=== PATIENT | female | born 1980 | race African-American/Black ===

== ENCOUNTER 2019-10-05 09:26 | Outpatient (CLI) | payer BC, SELFPAY ==
--- NOTE | ~2019-10-05 | MM_ITS ---
EXAMINATION: MM screening [facility] [place] HISTORY: Screening mammogram TECHNIQUE: Craniocaudal and mediolateral oblique 3-D tomosynthesis images were obtained and synthetic 2-D images were generated. CAD analysis was submitted and interpreted. COMPARISON: No prior mammogram is available for comparison at this institution. BREAST PARENCHYMAL COMPOSITION: There are scattered areas of fibroglandular density. FINDINGS: There is no evidence of suspicious mass, calcification, or architectural distortion to sugg est malignancy in either breast. There has been no suspicious interval change. IMPRESSION: 1. No mammographic evidence of malignancy. 2. Recommend routine screening mammography in one year. BI-RADS Category 1: Negative Reviewed, dictated and finalized at location A.
== END 2019-10-05 09:27 | disposition home or self-care (01) ==
LOC: ANHIMG 09:30
PROVIDERS: PCP Family Medicine; Visit Provider Nurse Practitioner
DX: Z12.31 Encounter for screening mammogram for malignant neoplasm of breast (principal)
CPT/HCPCS: 77063; 77067

== ENCOUNTER → 2020-05-08 10:50 | Outpatient (CLI) | payer BC, SELFPAY ==
--- NOTE | ~2020-05-08 | US_ITS ---
EXAMINATION: US OB transvaginal DATE: 05/08/2020 11:23 INDICATION: History of spontaneous TECHNIQUE: Real-time transvaginal obstetric ultrasound. FINDINGS: No prior studies for comparison. The uterus measures 10.2 x 5.9 x 6.3 cm. There is an intrauterine gestational sac which is too small to assess for estimated gestational age. No pole or yolk sac identified. Right ovary is unremar kable measuring 2.9 x 2.7 x 2.2 cm. Left ovary not visualized. No free fluid in the pelvis. IMPRESSION: 1. Intrauterine gestational sac without pole or yolk sac, consistent with early gestation. Larry mmend follow-up with serial quantitative beta-hCG levels and ultrasound as clinically indicated. Reviewed, dictated and finalized at location B. IMPRESSION: 1. Intrauterine gestational sac without pole or yolk sac, consistent with early gestation. Recommend follow-up with serial quantitative beta-hCG levels and ultrasound as clinically indicated.
== END ==
PROVIDERS: PCP Family Medicine; Visit Provider Obstetrics & Gynecology Gynecology
DX: O26.21 Pregnancy care for patient with recurrent pregnancy loss, first trimester (principal); Z3A.00 Weeks of gestation of pregnancy not specified
CPT/HCPCS: 76817

== ENCOUNTER → 2020-05-13 10:37 | Outpatient (CLI) | payer BC, SELFPAY ==
--- NOTE | ~2020-05-13 | US_ITS ---
EXAMINATION: US OB transvaginal DATE: 05/13/2020 10:58 INDICATION: Labs not appropriate for gestational age. TECHNIQUE: Real-time transvaginal pelvic ultrasound was performed. COMPARISON: None. FINDINGS: The uterus measures 12.0 x 6.4 x 6.8 cm. There is a cyst with mean diameter of 9 mm in the endometria l complex that may be a gestational sac. No yolk sac or pole is identified. The right ovary maria d sures 3.1 x 2.4 x 2.3 cm. The left ovary measures 2.7 x 1.5 x 2.3 cm. There is no free fluid in the p jocelyne. IMPRESSION: 1. 9 mm cyst in the endometrial complex that is indeterminate for a gestational sac, increased from 7 mm on 05/08/20. Spontaneous and ectopic are not excluded. Serial beta-hCGs are r ecommended. Reviewed, dictated and finalized at location A. IMPRESSION: 1. 9 mm cyst in the endometrial complex that is indeterminate for a gestationa l sac, increased from 7 mm on 05/08/20. Spontaneous and ectopic pregna ncy are not excluded. Serial beta-hCGs are recommended.
== END ==
PROVIDERS: Visit Provider Nurse Practitioner
DX: O02.81 Inappropriate change in quantitative human chorionic gonadotropin (hCG) in early pregnancy (principal); Z3A.00 Weeks of gestation of pregnancy not specified
CPT/HCPCS: 76817

== ENCOUNTER 2020-10-10 08:18 | Outpatient (CLI) | payer BC, SELFPAY ==
--- NOTE | ~2020-10-10 | MM_ITS ---
EXAMINATION: MM screening [facility] [place] HISTORY: Screening mammogram TECHNIQUE: Craniocaudal and mediolateral oblique 3-D tomosynthesis images were obtained and synthetic 2-D images were generated. CAD analysis was submitted and interpreted. COMPARISON: 10/05/2019 BREAST PARENCHYMAL COMPOSITION: There are scattered areas of fibroglandular density. FINDINGS: Intramammary lymph node is noted in the upper outer quadrant of the right breast. There is no evidence of suspicious mass, calcification, or architectural distortion to suggest malignancy in e ither breast. There has been no suspicious interval change. IMPRESSION: 1. No mammographic evidence of malignancy. 2. Recommend routine screening mammography in one year. BI-RADS Category 2: Benign finding(s). Reviewed, dictated and finalized at location A.
== END 2020-10-10 08:19 | disposition home or self-care (01) ==
LOC: ANHIMG 08:20
PROVIDERS: PCP Family Medicine; Visit Provider Nurse Practitioner
DX: Z12.31 Encounter for screening mammogram for malignant neoplasm of breast (principal)
CPT/HCPCS: 77063; 77067

== ENCOUNTER → 2020-11-01 11:12 | Outpatient (CLI) | payer BC, SELFPAY ==
--- NOTE | ~2020-11-01 | US_ITS ---
US OB transvaginal DATE: 11/01/2020 11:48 INDICATION: Evaluate viability TECHNIQUE: Real-time imaging via transvaginal approach COMPARISON: 05/13/2020 obstetrical transvaginal examination FINDINGS: The uterus measures 10.2 cm height, 6.5 cm AP and 6.3 cm transverse dimension. There is sonia dence of a probable intrauterine gestational sac, with no pole or yolk sac evident. Mean sac di ameter is out of range. 2 cm right ovarian cyst. Left ovary is not visualized. No free pelvic fluid collection is detected. IMPRESSION: Possible early intrauterine gestational sac, without identifiable pole or yolk sac Consider follow-up obstetrical ultrasound imaging 2 cm right ovarian cyst Reviewed, dictated and finalized at Location A. Reviewed, dictated and finalized at location A. IMPRESSION: Possible early intrauterine gestational sac, without identifiable f etal pole or yolk sac Consider follow-up obstetrical ultrasound imaging 2 cm right ovarian cyst
== END ==
PROVIDERS: Visit Provider Obstetrics & Gynecology Gynecology
DX: O36.80X0 Pregnancy with inconclusive fetal viability, not applicable or unspecified (principal); Z3A.00 Weeks of gestation of pregnancy not specified; N83.201 Unspecified ovarian cyst, right side
CPT/HCPCS: 76817

== ENCOUNTER → 2020-11-14 10:06 | Outpatient (CLI) | payer BC, SELFPAY ==
--- NOTE | ~2020-11-14 | US_ITS ---
US OB transvaginal 11/14/2020 10:35 Indication: Evaluate viability. No pole identified on prior study. Procedure: High-resolution Limited early obstetrical ultrasound using transvaginal technique Comparison: Ultrasound dated 11/01/2020 Findings: Uterus measures 10.7 x 6.1 x 7.3 cm. No gestational sac or pole identified on the cur rent study. Endometrium is thickened and somewhat heterogeneous measuring 1.5 cm. There is a 2.8 cm corpus luteal cyst of the right ovary. The ovaries not visualized. No free fluid in the pelvis. Impression: 1: No identifiable gestational sac or pole identified. Thickened heterogeneous endometrium letty uring 1.5 cm. Findings compatible with failed . Recommend follow-up with serial quantitative beta-hCG levels and ultrasound as clinically warranted. Reviewed, dictated and finalized at location B. Impression: 1: No identifiable gestational sac or pole identified. Thickened heteroge neous endometrium measuring 1.5 cm. Findings compatible with failed . Recommend follow-up with serial quantitative beta-hCG levels and ultrasound as clinically warranted.
== END ==
PROVIDERS: Visit Provider Obstetrics & Gynecology Gynecology
DX: O36.80X0 Pregnancy with inconclusive fetal viability, not applicable or unspecified (principal); Z3A.00 Weeks of gestation of pregnancy not specified
CPT/HCPCS: 76817

== ENCOUNTER 2020-11-30 00:24 | Emergency (ER) | payer BC, SELFPAY ==
[2020-11-30] VITALS (7 sets, daily range): BP systolic 114–156; BP diastolic 64–109; PULSE 87–114; RESP 18–20; TEMP 36.2–37.2; O2SAT 98–100
[2020-11-30] MEDS: SODIUM CHLORIDE 0.9% IV 1,000 ML 999 ML IV CONT (01:14)
--- NOTE | 2020-11-30 01:15 | PC.NURSE ---
Pt presents to ED with complaints of vaginal bleeding due to an active miscarriage. Pt states initial onset was 11/23/20 that began with cramping. Pt states today bleeding has onset and there is large amount of blood and clots passing. Pt states she was approx 9 weeks . Denies nvd, fever, chills, chest pain and sob. Pain rated 5/10 at this time. pt self administered 800mg ibuprofen approx one hour ago. Pt with hx of hypertension and states she missed her dose of labetolol of which she takes twice daily. Pt alert and oriented x4. Breathing even and unlabored. Call button and personal items within reach. Spouse at bedside. Advised to press call button for assistance.
[2020-11-30 01:25] LABS: Add Urine Microscopic? YES; Appearance Urine Turbid (Clear); Bilirubin Urine Negative (Negative); Blood Urine 3+ (Negative); Budding Yeast Urine Present /hpf; Color Urine Red (Yellow); Glucose Urine UA 1+ mg/dL (Negative); Ketones Urine Negative (Negative); Leukocyte Esterase Ur Negative LEU/UL (Negative); Nitrate Urine Negative (Negative); Protein Urine 3+ mg/dL (Negative); RBC Urine >75 /hpf (0-2); Specific Grav Ur 1.015 (1.001-1.035); Urobilinogen Urine Negative mg/dL (<2.0)
[2020-11-30 01:31] LABS: Basophils Absolute Auto 0.1 K/mm3 (0.0-0.1); Basophils Percent Auto 0.4 % (0.2-1.2); Eosinophils Absolute Auto 0.2 K/mm3 (0-0.3); Eosinophils Percent Auto 1.3 % (0-4.4); Hematocrit 37.4 % (37.0-47.0); Hemoglobin 11.7 g/dL (12.0-15.0); Immature Granulocyte Absolute 0.04 K/mm3 (0.00-0.031); Immature Granulocyte Percent A 0.3 % (0-0.5); Lymphocytes Percent Auto 12.8 % (18.3-44.2); Mean Corpuscular HGB Conc 31.3 g/dl (32-36); Mean Corpuscular Hemoglobin 27.5 pg (26-34); Mean Platelet Volume 10.5 fl (7.4-10.4); Monocytes Absolute Auto 0.7 K/mm3 (0.1-0.6); Monocytes Percent Auto 4.9 % (2.6-8.5); Neutrophils Absolute Auto 10.7 K/mm3 (1.3-6.7); Neutrophils Percent Auto 80.3 % (45.5-73.1); Platelet Count Result 275 k/mm3 (150-375); Red Blood Count 4.25 M/mm3 (4.2-5.4); Red Cell Distribution Width 15.1 % (11.5-14.5); White Blood Count 13.3 K/mm3 (4.5-10.0)
[2020-11-30 01:34] LABS: Alanine Aminotransferase 17 U/L (4-35); Albumin Level 4.2 g/dL (3.5-5.1); Alkaline Phosphatase 64 U/L (38-126); Anion Gap 6 mmol/L (8-16); Aspartate Amino Transferase 26 U/L (14-36); Bilirubin,Total 0.4 mg/dL (0.2-1.3); Blood Urea Nitrogen 8 mg/dL (7-17); Calcium 9.1 mg/dL (8.4-10.2); Carbon Dioxide 28 mmol/L (22-30); Chloride 101 mmol/L (98-107); Estimated Glomerular Filt Rate > 60; Glucose 113 mg/dL (65-105); Potassium 3.9 mmol/L (3.4-5.0); Sodium 135 mmol/L (137-145)
--- NOTE | 2020-11-30 02:11 | PC.NURSE ---
Pt on cart sleeping. Spouse remains at bedside. Vitals are stable and pt in no obvious distress. Call button and personal items were within reach. Advised to press call button for assistance.
--- NOTE | 2020-11-30 02:23 | PC.NURSE ---
Pt and updated on labs. IV fluids continue to infuse due to positional IV site. Pt remains alert and oriented x4 and in no obvious distress at this time. Advised to press call button for assistance.
--- NOTE | 2020-11-30 02:37 | ED.GENADULT ---
HPI - General Adult General Chief complaint: Vaginal Bleeding Stated complaint: Vaginal bleeding, recent miscarry Time Seen by Provider: 11/30/20 01:09 History of Present Illness HPI narrative: Patient 40-year-old female presents the emergency department with chief complaint of vaginal bleeding. The patient reports that she is currently being followed by her PRODUCT CONSULTANT for a miscarriage. The patient states that she was last seen on Tuesday for a blood draw for a quantitative hCG. Patient reports she is Rh+ and reports that she is started having bleeding and cramping. The patient states the cramping has gotten moderate to severe and reports that now she is going through about a pad every 2 hours. The patient states she has passed some clots. The patient denies syncope denies lightheadedness denies chest pain or shortness of breath. Related Data Allergies Allergy/AdvReac Type Severity Reaction Status Date / Time No Known Allergies Allergy Verified 11/30/20 00:30 Review of Systems Review of Systems: Narrative: A 10 system review of systems was completed on the patient and is negative except for what is stated in the HPI. Nursing and ancillary documentation was reviewed. Exam Narrative: Exam Narrative: GENERAL: Well-appearing, well-nourished, and in no acute distress. HEAD: Normocephalic, atraumatic. EYES: PERRLA and EOMI. ENT: Nares clear, no rhinorrhea or epistaxis. Mucous membranes moist. NECK: Supple. CHEST: Clear to auscultation. No respiratory distress. HEART: Regular rate and rhythm. No murmur heard. Normal peripheral pulses. ABDOMEN: Soft, nontender, nondistended, normal active bowel sounds. : EXTREMITIES: Normal range of motion. No edema. SKIN: Warm, dry, no rash. NEURO: No focal deficits. Alert and oriented x3. PSYCH: Normal mood and affect. Course Vital Signs Vital signs: Vital Signs Temperature 36.2 C L 11/30/20 00:27 Pulse Rate 96 11/30/20 00:27 Respiratory Rate 20 11/30/20 00:27 Blood Pressure 152/109 H 11/30/20 00:27 Pulse Oximetry 100 11/30/20 00:27 Temperature 36.2 C L 11/30/20 00:27 Pulse Rate 95 11/30/20 01:19 Respiratory Rate 18 11/30/20 01:19 Blood Pressure 149/104 H 11/30/20 01:19 Pulse Oximetry 100 11/30/20 01:19 Medical Decision Making Vital Signs Vital Signs: Vital Signs Temperature 36.2 C L 11/30/20 00:27 Pulse Rate 96 11/30/20 00:27 Respiratory Rate 20 11/30/20 00:27 Blood Pressure 152/109 H 11/30/20 00:27 Pulse Oximetry 100 11/30/20 00:27 Temperature 36.2 C L 11/30/20 00:27 Pulse Rate 95 11/30/20 01:19 Respiratory Rate 18 11/30/20 01:19 Blood Pressure 149/104 H 11/30/20 01:19 Pulse Oximetry 100 11/30/20 01:19 Lab Data Result diagrams: 11/30/20 01:13 11/30/20 01:13 Labs: Lab Results 11/30/20 11/30/20 11/30/20 Range/Units 01:07 01:13 01:13 WBC 13.3 H (4.5-10.0) K/mm3 RBC 4.25 (4.2-5.4) M/mm3 Hgb 11.7 L (12.0-15.0) g/dL Hct 37.4 (37.0-47.0) % MCV 88.0 (80-100) fl MCH 27.5 (26-34) pg MCHC 31.3 L (32-36) g/dl RDW 15.1 H (11.5-14.5) % Plt Count 275 (150-375) k/mm3 MPV 10.5 H (7.4-10.4) fl Immature Gran % (Auto) 0.3 (0-0.5) % Neut % (Auto) 80.3 H (45.5-73.1) % Lymph % (Auto) 12.8 L (18.3-44.2) % [place] % (Auto) 4.9 (2.6-8.5) % Eos % (Auto) 1.3 (0-4.4) % Baso % (Auto) 0.4 (0.2-1.2) % Lymph # (Auto) 1.70 (0.9-3.2) K/mm3 [place] # (Auto) 0.7 H (0.1-0.6) K/mm3 Eos # (Auto) 0.2 (0-0.3) K/mm3 Baso # (Auto) 0.1 (0.0-0.1) K/mm3 Abs Immat Gran (auto) 0.04 H (0.00-0.031) K/mm3 Absolute Neuts (auto) 10.7 H (1.3-6.7) K/mm3 Absolute Nucleated RBC 0.0 (0.0-0.012) K/mm3 Nucleated RBC % 0.0 (0.0-0.2) % Sodium 135 L (137-145) mmol/L Potassium 3.9 (3.4-5.0) mmol/L Chloride 101 (98-107) mmol/L Carbon Dioxide 28 (22-30) mmol/L Anion Gap 6 L (8-16) mmol/L
--- NOTE | 2020-11-30 02:45 | PC.NURSE ---
Pt ambulated in amato to restroom and is now back in room resting on cart. Pt aware of poc and upcoming pelvic exam and has no questions and concerns at this time. remains at bedside.
--- NOTE | 2020-11-30 03:11 | PC.NURSE ---
EDMD presented to bedside for pelvic exam. Pt states abdominal cramping has improved.
--- NOTE | 2020-11-30 03:22 | PC.NURSE ---
Pt tolerated pelvic exam. Resting on cart in its lowest position with call button and personal items within reach. Advised to press call button for assistance.
== END 2020-11-30 04:10 | disposition home or self-care (01) ==
PROVIDERS: Emergency Provider Emergency Medicine; PCP Family Medicine
DX: O03.4 Incomplete spontaneous abortion without complication (principal)
CPT/HCPCS: 36415; 80053; 81001; 81025; 84702; 85025; 96360; 96361; 99283; J7030

== ENCOUNTER 2021-05-25 10:35 | Outpatient (CLI) | payer BC, SELFPAY ==
--- NOTE | 2021-05-25 10:46 | ECG_ITS ---
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
== END 2021-05-25 10:36 | disposition home or self-care (01) ==
LOC: ANHLAB 10:37
PROVIDERS: PCP Family Medicine; Visit Provider Nurse Practitioner Adult Health
DX: E66.01 Morbid (severe) obesity due to excess calories (principal); I10 Essential (primary) hypertension; R94.31 Abnormal electrocardiogram [ECG] [EKG]
CPT/HCPCS: 93005

== ENCOUNTER 2022-02-03 09:07 | Outpatient (CLI) | payer BC, SELFPAY ==
--- NOTE | ~2022-02-03 | MM_ITS ---
EXAMINATION: MM screening [facility] [place] HISTORY: Screening TECHNIQUE: Craniocaudal and mediolateral oblique 3-D tomosynthesis images were obtained and synthetic 2-D images were generated. CAD analysis was submitted and interpreted. COMPARISON: Comparison to multiple prior studies sequentially, with oldest reviewed study dated 10/04. BREAST PARENCHYMAL COMPOSITION: There are scattered areas of fibroglandular density. FINDINGS: There is no evidence of suspicious mass, calcification, or architectural distortion to sugg est malignancy in either breast. There has been no suspicious interval change. IMPRESSION: 1. No mammographic evidence of malignancy. 2. Recommend routine screening mammography in one year. BI-RADS Category 1: Negative Reviewed, dictated and finalized at location L.
== END 2022-02-03 09:08 | disposition home or self-care (01) ==
LOC: ANHIMG 09:12
PROVIDERS: PCP Nurse Practitioner Family; Visit Provider Nurse Practitioner
DX: Z12.31 Encounter for screening mammogram for malignant neoplasm of breast (principal)
CPT/HCPCS: 77063; 77067

== ENCOUNTER 2023-07-28 16:13 | Outpatient (CLI) | payer BC, SELFPAY ==
--- NOTE | ~2023-07-28 | MM_ITS ---
EXAMINATION: MM screening [facility] [place] HISTORY: Screening mammogram TECHNIQUE: Craniocaudal and mediolateral oblique 3-D tomosynthesis images were obtained and synthetic 2-D images were generated. CAD analysis was submitted and interpreted. COMPARISON: 02/03/2022, 10/10/2020, 10/05/2019 BREAST PARENCHYMAL COMPOSITION: There are scattered areas of fibroglandular density. FINDINGS: RIGHT BREAST: There is possible architectural distortion in the middle third of the central breast. LEFT BREAST: No suspicious mass, calcification, or architectural distortion are identified to suggest malignancy. There has been no suspicious interval change. IMPRESSION: 1. Possible right breast architectural distortion. 2. Additional mammographic views and possible breast ultrasound are recommended. BI-RADS Category 0: Incomplete: Needs additional imaging evaluation. Reviewed, dictated and finalized at location A. MS EXAMINER IMPRESSION: 1. Possible right breast architectural distortion. 2. Additional mammographic views and possible breast ultrasound are recommended . BI-RADS Category 0: Incomplete: Needs additional imaging evaluation.
== END 2023-07-28 16:14 | disposition home or self-care (01) ==
PROVIDERS: PCP Nurse Practitioner Family; Visit Provider Nurse Practitioner
DX: Z12.31 Encounter for screening mammogram for malignant neoplasm of breast (principal); R92.8 Other abnormal and inconclusive findings on diagnostic imaging of breast
CPT/HCPCS: 77063; 77067

== ENCOUNTER 2023-08-29 12:21 | Outpatient (CLI) | payer BC, SELFPAY ==
--- NOTE | ~2023-08-29 | MMUS_ITS ---
EXAMINATION: MM diagnostic [facility] [place], US breast RT limited HISTORY: Possible right breast architectural distortion on screening mammogram TECHNIQUE: Additional 3-D tomosynthesis images of the right breast were performed and synthetic 2-D i mages were generated. CAD analysis was submitted and interpreted. High resolution limited right breas t ultrasound was performed. COMPARISON: 07/28/2023, 02/03/2022, 10/10/2020, 10/05/2019 FINDINGS: MAMMOGRAPHIC FINDINGS: There is a persistent area of architectural distortion in the middle/posterior third of the breast at the 12:00 location approximately 9 cm from the nipple. ULTRASOUND: There is no evidence of focal abnormal solid or cystic mass in the vicinity of the mammographic findi ngs question. IMPRESSION: 1. Right breast architectural distortion without sonographic correlate. 2. Tomosynthesis guided biopsy is recommended. BI-RADS category 4, suspicious findings. Reviewed, dictated and finalized at location A. 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 Right breast architectural distortion without sonographic correlate. 2. Tomosynthesis guided biopsy is recommended. BI-RADS category 4, suspicious findings.
== END 2023-08-29 12:22 | disposition home or self-care (01) ==
LOC: ANHIMG 12:23
PROVIDERS: PCP Family Medicine; Visit Provider Obstetrics & Gynecology Gynecology
DX: R92.8 Other abnormal and inconclusive findings on diagnostic imaging of breast (principal)
CPT/HCPCS: 76642; 77061; 77065; G0279

== ENCOUNTER 2024-04-13 07:14 | Outpatient (CLI) | payer BC, SELFPAY ==
--- NOTE | ~2024-04-13 | XR_ITS ---
XR knee RT 3V 04/13/2024 07:53 Indication: Bilateral knee pain Procedure: 3 views right knee Comparison: No prior studies for comparison. Findings: There is moderate tricompartment osteoarthritis. No fracture or traumatic malalignment. No significant joint effusion. No foreign bodies. Impression: 1: Moderate tricompartment osteoarthritis of the right knee. Reviewed, dictated and finalized at location B. Impression: 1: Moderate tricompartment osteoarthritis of the right knee.
--- NOTE | ~2024-04-13 | XR_ITS ---
XR knee LT 3V 04/13/2024 07:53 Indication: Left knee pain Procedure: 3 views left knee Comparison: No prior studies for comparison. Findings: There is moderate osteoarthritis of the left knee. No fracture, subluxation or dislocation. No significant joint effusion. No foreign bodies. Impression: 1: Moderate osteoarthritis of the left knee. Reviewed, dictated and finalized at location B. Impression: 1: Moderate osteoarthritis of the left knee.
== END 2024-04-13 07:15 | disposition home or self-care (01) ==
PROVIDERS: PCP Nurse Practitioner Family; Visit Provider Nurse Practitioner Family
DX: M17.0 Bilateral primary osteoarthritis of knee (principal)
CPT/HCPCS: 73562

== ENCOUNTER 2024-11-02 10:22 | Outpatient (CLI) | payer BC, SELFPAY ==
--- NOTE | ~2024-11-02 | MM_ITS ---
EXAMINATION: MM screening [place] BI w [place] HISTORY: Screening TECHNIQUE: Craniocaudal and mediolateral oblique 3-D tomosynthesis images were obtained and synthetic 2-D images were generated. CAD analysis was submitted and interpreted. COMPARISON: Comparison to multiple prior studies sequentially, with oldest reviewed study dated 10/04. BREAST PARENCHYMAL COMPOSITION: Not dense: There are scattered areas of fibroglandular density. FINDINGS: There is no evidence of suspicious mass, calcification, or architectural distortion to sugg est malignancy in either breast. There has been no suspicious interval change. IMPRESSION: 1. No mammographic evidence of malignancy. 2. Recommend routine screening mammography in one year. BI-RADS Category 1: Negative Reviewed, dictated and finalized at location B.
--- OUTSIDE RECORDS SUMMARY | 2024-11-02 10:32 | XMS_ITS | Data Portability ---
Author Organization MD - [facility], Main Office Address [address] [place] [address] Assessment No assessment recorded. Plan of Treatment Reminders Order Date Submit Date Provider Last Modified By Organization Details Last Modified Time Details Appointments None recorded. Lab None recorded. Referral None recorded. Procedures None recorded. Surgeries None recorded. Imaging XR, knee, 3 view 2023 024 [facility], [address] [place] [address], [address], 4 11:45:06 Medication Orders hydrochloro thiazide 25 mg tablet 2023 024 [facility]/Pharmacy #[id number], [address] [place], [address], 4 09:07:22 hydrochloro thiazide 25 mg tablet 2022 023 [email or web address] 5 [facility]/Pharmacy #[id number], [address] [place], [address], 3 17:12:44 Patient TargetsNo targets recorded. Patient InstructionsNo instructions recorded. Reason for Referral None Reported. Results Created Date Observation Date Name Description Value Unit Range Abnormal Flag Note LastModifiedBy Organization Detail LastModifiedTime 07/28/19 24 07/28/2023 MAMMO , scree lina, digit al, bilvibha spaulding No observ ation record ed. [address] [place] [address], [address], 07/29/2023 08:14:04 08/30/19 24 08/29/2023 MAMMO , diagn ostic , digit al, unila teral No observ ation record ed. [facility] [address], [place], [address], 08/30/2023 14:40:04 04/13/20 24 04/13/2024 XR, knee, 3 view No observ ation record ed. [email or web address] [address], [place], [address], 04/17/2024 15:17:16 Result Notes None recorded. Problems Name Problem SNOMED Code Status Onset Date Resolution Date Notes Provider Name and Address Organization Details Recorded Time Urinary incontine nce 430831348 Active 2020 Not Available [facility] 3 19:45:44 Asthma 820007899 Completed 202003/05/2021 Not Available [facility] 3 19:45:44 Morbid obesity 134526288 Active 2020 Not Available [facility] 3 19:45:44 Depressiv e disorder 78636405 Active 2020 Not Available [facility] 3 19:45:44 Hypertens brenda disorder 69372995 Completed 201703/05/2021 Not Available [facility] 3 19:45:44 Body mass index 40+ - severely obese 803156747 Active 2020 Not Available [facility] 3 19:45:44 Essential hypertens ion 46329609 Active 2018 Not Available [facility] 3 19:45:44 Pain of bilateral knee joints 30669571601 4104 Active 2023 MODESTO Olivares [address], [address], [place], [address] , [facility] 4 08:51:19 Bilateral osteoarth ritis of knees 98247898084 9107 Active 2023 MODESTO Olivares [address], [address], [place], [address] , [place] [facility] 17:08:15 Problem Notes None recorded. Procedures Surgical History Date Name Laterality Status Provider Name and Address Organization Details Recorded Time 3 Gastric Bypass completed Regine Zhu RN [facility] 01/11/2023 16:51:35 Cyst Removal completed Not Available [facility] 09/15/2022 19:45:15 Imaging Results Imaging Date Name Status LastModified by Organiz ation Details LastModified Time 07/28/2023 MAMMO, screening, digital, bilateral completed [address] [place] [address], [address], 07/29/2023 08:14:04 08/29/2023 MAMMO, diagnostic, digital, unilateral completed [email or web address] [address], [place], [address], 08/30/2023 14:40:04 04/13/2024 XR, knee, 3 view completed [email or web address] [address], [place], [address], 04/17/2024 15:17:16 Procedure Notes None recorded. Medical Equipment None Reported. Allergies No known drug allergies Medications Name Sig Start Date Stop Date Status Note LastModified by Organization Details LastModified Time nifedipine ER 30 mg tablet,ext ended release 24 hr 1 po bid 06/16 completed Not Available Not Available Not Available cyclobenza riley 10 mg tablet TAKE 1 TABLET (10 MG TOTAL) BY MOUTH EVERY 8 (EIGHT) HOURS FOR 12 DOSES 04/12 completed Not Available Not Available Not Available terconazol e 0.4 % vaginal cream 03/05 completed Not Available Not Available Not Available labetalol 200 mg tablet 08/03 completed Not Available Not Available Not Available Novolin N NPH U-100 Insulin isophane 100 unit/mL subcutaneo us susp 03/05 completed Not Available Not Available Not Available hydrocodon e 5 mg-acetami nophen 325 mg tablet TAKE 1 TABLET BY MOUTH EVERY 6 HOURS FOR 3 DAYS NEEDED FOR PAIN 03/05 completed Not Available Not Available Not Available naltrexone 50 mg tablet TAKE 0.5 TABLET(S ) EVERY DAY BY ORAL ROUTE FOR 30 DAYS. 01/30 completed nausea Not Available Not Available Not Available spironolac tone 25 mg-hydroch lorothiazi de 25 mg tablet TAKE 1 TABLET BY MOUTH EVERY DAY 03/05 completed Not Available Not Available Not Available metronidaz ole 0.75 % (37.5 mg/5 gram) vaginal gel 03/05 completed Not Available Not Available Not Available lisinopril 20 mg tablet TAKE 1 TABLET BY MOUTH EVERY DAY 01/11 completed Not Available Not Available Not Available terconazol e 0.8 % vaginal cream INSERT 1 APPLICAT OR PER VAGINA AT BEDTIME FOR 3 DAYS 03/05 completed Not Available Not Available Not Available bupropion HCl SR 100 mg tablet,12 hr sustained- release TAKE 1 TABLET BY MOUTH EVERY DAY active Not Available Not Available No t Available amoxicilli n 875 mg tablet Take 1 tablet every 12 hours by oral route for 10 days. 04/12 completed Not Available Not Available Not Available cyanocobal villela (vit B-12) 500 mcg tablet TAKE 1 TABLET BY MOUTH DAILY 04/12 completed Not Available Not Available Not Available nifedipine ER 60 mg tablet,ext ended release 24 hr 08/03 completed Not Available Not Available Not Available Mapap (acetamino phen) 500 mg capsule TAKE 2 CAPSULES (1,000 MG TOTAL) BY MOUTH EVERY 8 (EIGHT) HOURS FOR 4 DAYS 04/12 completed Not Available Not Available Not Available benzonatat e 100 mg capsule 03/05 completed Not Available Not Available Not Available pantoprazo le 40 mg tablet,del ayed release TAKE 1 TABLET BY MOUTH TWICE A DAY 04/12 completed Not Available Not Available Not Available ferrous sulfate 325 mg (65 mg iron) tablet TAKE 1 TABLET BY MOUTH EVERY DAY WITH BREAKFAS T active Not Available Not Available No t Available ranitidine 150 mg tablet Take 1 tablet twice a day by oral route for 30 days. 03/05 completed Not Available Not Available Not Available clotrimazo le-betamet hasone 1 %-0.05 % topical cream APPLY TO AFFECTED AREA TWICE A DAY FOR 7 DAYS 09/26 /2024 completed Not Available Not Available Not Available lisinopril 10 mg tablet TAKE 1 TABLET BY MOUTH EVERY DAY 01/11 completed Not Available Not Available Not Available hyoscyamin e 0.125 mg sublingual tablet TAKE 1 TABLET (125 MCG TOTAL) BY MOUTH EVERY 6 (SIX) HOURS FOR 4 DAYS 04/12 completed Not Available Not Available Not Available ursodiol 300 mg capsule TAKE 1 CAPSULE (300 MG TOTAL) BY MOUTH 2 TIMES A DAY. 04/12 completed Not Available Not Available Not Available nystatin-t riamcinolo ne 100,000 unit/g-0.1 % topical cream APPLY TOPICALL Y TWICE A DAY FOR 14 DAYS 10/06 completed Not Available Not Available Not Available docusate sodium 100 mg capsule TAKE 1 CAPSULE BY MOUTH TWICE A DAY FOR 5 DAYS 04/12 completed Not Available Not Available Not Available hydrochlor othiazide 25 mg tablet TAKE 1 TABLET BY MOUTH EVERY DAY IN THE MORNING active Not Available Not Available No t Available ergocalcif anita (vitamin D2) 1,250 mcg (50,000 unit) capsule TAKE 1 CAPSULE BY MOUTH ONCE A WEEK WITH A MEAL 04/12 completed Not Available Not Available Not Available ibuprofen 600 mg tablet 03/05 completed Not Available Not Available Not Available scopolamin e 1 mg over 3 days transderma l patch PLACE 1 PATCH ON THE SKIN ONCE FOR [address] BEHIND EAR AT 8PM THE NIGHT PRIOR TO SURGERY 04/12 completed Not Available Not Available Not Available labetalol 100 mg tablet TAKE 1 TABLET BY MOUTH TWICE A DAY active Not Available Not Available No t Available ketoconazo le 2 % topical cream APPLY A SMALL AMOUNT TO THE AFFECTED AREA(S) BY TOPICAL ROUTE 2X/DAY FOR 14 DAYS, THEN ONCE DAILY 10/06 completed Not Available Not Available Not Available lisinopril 40 mg tablet TAKE 1 TABLET BY MOUTH EVERY DAY active Not Available Not Available No t Available ondansetro n 4 mg disintegra ting tablet TAKE 1 TABLET BY MOUTH EVERY 8 HOURS NEEDED FOR NAUSEA AND VOMITING 04/12 completed Not Available Not Available Not Available fluticason e propionate 50 mcg/actuat ion nasal spray,susp ension INSTILL 1 SPRAY NASALLY DAILY 03/05 completed Not Available Not Available Not Available loratadine 10 mg tablet TAKE 1 TABLET BY MOUTH EVERY DAY 03/05 completed Not Available Not Available Not Available naproxen 500 mg tablet TAKE 1 TABLET BY MOUTH TWICE A DAY NEEDED 03/05 completed Not Available Not Available Not Available progestero ne micronized 100 mg capsule TAKE 1 CAPSULE BY MOUTH EVERYDAY AT BEDTIME 03/05 completed Not Available Not Available Not Available oxycodone 5 mg tablet TAKE 1 TABLET BY MOUTH EVERY 6 HOURS NEEDED FOR PAIN 04/12 completed Not Available Not Available Not Available NuvaRing 0.12 mg-0.015 mg/24 hr vaginal INSERT ONE RING PER VAGINA AND REMOVE IN 3 WEEKS FOR PERIOD 10/06 completed Not Available Not Available Not Available medroxypro gesterone 150 mg/mL intramuscu lar syringe 03/05 completed Not Available Not Available Not Available Depo-SubQ provera 104 04/12 completed Not Available Not Available Not Available aprepitant 40 mg capsule TAKE 1 CAPSULE (40 MG TOTAL) BY MOUTH ONCE FOR 1 DOSE TAKE AT 8PM ON THE NIGHT PRIOR TO SURGERY 04/12 completed Not Available Not Available Not Available OneTouch UltraMini kit USE DIRECTED TO CHECK BLOOD SUGAR 03/05 completed Not Available Not Available Not Available Thera-M 9 mg iron-400 mcg tablet TAKE 1 TABLET BY MOUTH TWICE A DAY 04/12 completed Not Available Not Available Not Available OneTouch Delica Lancets 30 gauge USE TO TEST 4 TIMES PER DAY 03/05 completed Not Available Not Available Not Available potassium chloride ER 20 mEq tablet,ext ended release 03/05 completed Not Available Not Available Not Available Contrave 8 mg-90 mg tablet,ext ended release Take 2 tablets twice a day by oral route. 08/03 completed Not Available Not Available Not Available OneTouch Ultra Blue Test Strip USE TO CHECK UP TO 5 TIMES PER DAY 03/05 completed Not Available Not Available Not Available BD Veo Insulin Syringe Ultra-Fine 0.3 mL 31 gauge x 15/64 03/05 completed Not Available Not Available Not Available Vitals Date Recorded Body mass index (BMI) Body height Oxygen saturation Oxygen saturation in Arterial blood by Pulse oximetry Heart rate Body temperature Body weight Systolic blood pressure Diastolic blood pressure Systolic blood pressure Diastolic blood pressure Provider Name and Address Organization Details Last Updated DateTime 2 51.1 kg/m2 172.72 cm 96 % 96 % 96 /min 97.1 [degF] 212883. 04 g 145 mm[Hg] 120 mm[Hg] 142 mm[Hg] 98 mm[Hg] Not Available [facility] 3 19:45:34 Date Recorded Body mass index (BMI) Body height Oxygen saturation Oxygen saturation in Arterial blood by Pulse oximetry Heart rate Body temperature Body weight Systolic blood pressure Diastolic blood pressure Provider Name and Address Organization Details Last Updated DateTime 2 52.6 kg/m2 172.72 cm 95 % 95 % 108 /min 97.5 [degF] 239580. 96 g 121 mm[Hg] 76 mm[Hg] Not Available [facility] 3 19:45:34 Date Recorded Body height Body mass index (BMI) Body weight Body temperature Heart rate Oxygen saturation Oxygen saturation in Arterial blood by Pulse oximetry Systolic blood pressure Diastolic blood pressure Provider Name and Address Organization Details Last Updated DateTime 3 172.72 cm 44.7 kg/m2 033276. 16 g 98.6 [degF] 91 /min 96 % 96 % 132 mm[Hg] 90 mm[Hg] Regine Zhu RN [facility] 3 16:49:14 Date Recorded Body height Body mass index (BMI) Body weight Body temperature Heart rate Oxygen saturation Oxygen saturation in Arterial blood by Pulse oximetry Systolic blood pressure Diastolic blood pressure Provider Name and Address Organization Details Last Updated DateTime 3 172.72 cm 39.2 kg/m2 772609. 83 g 98.4 [degF] 82 /min 99 % 99 % 122 mm[Hg] 80 mm[Hg] Pauline Minaya LPN [employer] [facility] 3 12:04:57 Date Recorded Body height Body mass index (BMI) Body weight Body temperature Heart rate Oxygen saturation Oxygen saturation in Arterial blood by Pulse oximetry Systolic blood pressure Diastolic blood pressure Provider Name and Address Organization Details Last Updated DateTime 4 172.72 cm 38.3 kg/m2 251741. 28 g 98.2 [degF] 82 /min 100 % 100 % 118 mm[Hg] 82 mm[Hg] Maricel Haynes RN [place] [facility] 4 08:35:46 Social History Question Answer Notes LastModified by Organizat ion Details LastModified Time Tobacco Smoking Status Never Smoker KAYLEE Daniels [place] [facility] 05/17/2023 11:55:35 What Is Your Level Of Alcohol Consumption? Occasional [id number] Information not available 09/15/2022 What Is Your Level Of Caffeine Consumption? None [id number] Information not available 09/15/2022 How Much Tobacco Do You Chew? None [id number] Information not available 09/15/2022 In The 14 Days Before Symptom Onset, Have You Had Close Contact With A Laboratory-confir med COVID-19 While That Case Was Ill? No [email or web address] Information not available 05/17/2023 In The 14 Days Before Symptom Onset, Have You Had Close Contact With A Person Who Is Under Investigation For COVID-19 While That Person Was Ill? No Information not available 05/17/2023 What Type Of Diet Are You Following? REGULAR [id number] Information not available 09/15/2022 Which Illicit Or Recreational Drugs Have You Used? None [email or web address] Information not available 05/17/2023 Do You Or Have You Ever Used E-cigarettes Or Vape? 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 No Information not available 05/17/2023 Have You Ever Been Counseled For Unhealthy Alcohol Use? No [email or web address] Information not available 05/17/2023 Do You Or Have You Ever Used Smokeless Tobacco? Never Used Smokeless Tobacco [id number] Information not available 09/15/2022 How Much Tobacco Do You Smoke? No [id number] Information not available 09/15/2022 Do You Use Sunscreen Routinely? Yes [email or web address] Information not available 05/17/2023 Has Tobacco Cessation Counseling Been Provided? No [email or web address] Information not available 05/17/2023 Do You Have Any Dietary Restrictions? No [email or web address] Information not available 05/17/2023 Do You Or Have You Ever Used Any Other Forms Of Tobacco Or Nicotine? No [email or web address] Information not available 05/17/2023 Sex: Female Functional Status Question Answer Note LastModified by Organizat ion Details LastModified Time What is your exercise level? Occasional [id number] Information not available 09/15/2022 Mental Status None recorded. Family History Relationship Description Onset Age of this Age Resolved Age Notes LastModified by Organization Details LastModified Time Unspecified Relation Hypertensive disorder [id number] Not available 09/15/2022 19:45:15 Unspecified Relation Asthma [id number] Not available 09/15/2022 19:45:15 Medical History Condition Response OBESITY Y DEPRESSION (INCLUDING POST ) Y HYPERTENSION Y Gynecological History Statement/Question Response Abnormal Pap Y Date of Last Mammogram 10/10/2020 Flow Heavy Date of LMP 01/04/2023 Dislike of Light during Menstrual Headac he N Menses Monthly Y Date of Last Pap 09/26/2020 Duration of Flow (days) 5 Current Control Method None Breast Problems none Obstetrics History GPAL:G 4 P 1 0 3 1 Type Value Full Term 1 Spontaneous 3 Living 1 Total 4 Immunizations Vaccine Type Date Status Note Provider Nam e and Address Organization Details Recorded Time COVID-19 IV Non-US Vaccine (COVAXIN) 09/04/2020 completed Not Available [facility] 19:46:52 COVID-19 LAV Non-US Vaccine (COVIVAC) 08/13/2020 completed Not Available [facility] 19:46:52 Past Encounters Encounter ID Performer Location Encounter Start Date Encounter Closed Date Diagnosis/Indication Diagnosis SNOMED-CT Code Diagnosis ICD10 Code Diagnosis Note [id number] [facility] [address] [place] [address] 01/30/2021 00:00:00 01/30/2021 19:36:39 [id number] [facility] [address] [place] [address] 02/20/2021 00:00:00 02/20/2021 13:46:43 [id number] _PIA_Mary Ann IGRATION_ DEFAULT_1 _1 , 03/05/2021 00:00:00 03/06/2021 14:11:27 [id number] [facility] [place] [address] [place] [address] 03/18/2021 00:00:00 03/18/2021 20:51:42 [id number] [facility] [place] [address] [place] [address] 04/22/2021 00:00:00 04/22/2021 09:58:29 [id number] [facility] [place] [address] [place] [address] 07/03/2021 00:00:00 07/03/2021 16:46:36 [id number] [facility] [place] [address] [place] [address] 07/30/2021 00:00:00 07/30/2021 16:32:20 [id number] [facility] [place] [address] [place] [address] 09/02/2021 00:00:00 09/02/2021 12:30:38 [id number] [facility] [place] [address] [place] [address] 12/17/2021 00:00:00 12/17/2021 10:56:12 [id number] [facility] [place] [address] [place] [address] 03/31/2022 00:00:00 03/31/2022 13:38:37 [id number] [facility] [place] [address] [place] [address] 05/12/2022 00:00:00 05/12/2022 18:04:30 [id number] [facility] [place] [address] [place] [address] 06/30/2022 00:00:00 06/30/2022 13:51:19 [id number] ZACK Patino [facility] [place] [address] [place] [address] 01/11/2023 16:44:01 01/11/2023 17:16:02 History of bariatric surgical procedure 234691255 Z98.84 Gastric sleeve (10/06/22)D own 50# since last visit.Enco uraged pt to continue to work on dietary changes, good fluid intake. Essential hypertension 51428696 I10 Chronic, improving, but not quite to goalHopefu lly bp will continue to improve with weight loss.Asymp tomatic at this timeEncour aged pt to increase water intake, reduce caffeine intake, exercise regularly, decrease/e liminate sodium intake, work on weight loss and stress reductionC ontinue lisinopril 40mg dailyStart hctz 25mg daily [id number] ZACK Patino [facility] [address] [place] [address] 05/17/2023 11:54:33 05/17/2023 13:35:56 Essential hypertension 16582841 I10 Chronic,mu ch improved following bariatric surgery.Ho pefully bp will continue to improve with weight loss.Asymp tomatic at this timeEncour aged pt to increase water intake, reduce caffeine intake, exercise regularly, decrease/e liminate sodium intake, work on weight loss and stress reductionC ontinue lisinopril 40mg dailyConti nue hctz 25mg daily History of bariatric surgical procedure 836693659 Z98.84 Gastric sleeve (10/06/22)D own over 90# since last visit.Enco uraged pt to continue to work on dietary changes, good fluid intake. [id number] ZACK Olivares-C [facility] [address] [place] [address] 04/12/2024 08:26:51 04/12/2024 09:08:42 Pain of bilateral knee joints 7088820576 03686 M25.561 [facility]ati [facility] to painpain has since resolvedXR richard knee ordered Essential hypertension 08528173 I10 Health Concerns Section Related Observation LastModified by Organization Detai ls LastModified Time None Recorded Concern Status LastModified by Organization Details LastModified Time None Recorded Advance Directives Directive None Recorded Payers Encounter Date Sequence Insurance Name Policy Number Policy Chandler Covered Member ID Chandler Member ID Guarantor Name 01/11/2023 1 [place] 111 Leia Cardenas [id number] Leia Cardenas 05/17/2023 1 [place] 111 Leia Cardenas [id number] Leia Cardenas 04/12/2024 1 [place] 111 Leia Cardenas [id number] Leia Cardenas Notes Date Note Type Note Provider Name and Address Organization Details Recorded Time 01/11/2023 text/html 1. Pt in office for f/u on BP. Pt states she is hoping to lose enough weight to get off bp medication entirely.2. Pt had bariatric surgery a three months ago. Pt states she has noticed that her knees don't hurt as much with the first 50# she lost. ZACK Patino [address], [place], [address], [facility] 01/11/2023 18:45:10 05/17/2023 text/html 1. Pt in office for f/u appt. Pt states she passed out a few weeks ago. States she had just finished eating breakfast. States she is eating 5-6x/day, drinking a lot of water.2. Pt states during fall she landed on her knees. Has pain in left > right. States she was walking like Frankenstein for a day and a half. Just started taking glucosamine chondroitin with tumeric. ZACK Patino [address], [place], [address], [facility] 05/17/2023 13:38:08 04/12/2024 text/html pt is here for b il knee pain ZACK Olivares-C [address], [place], [address], [facility] 04/12/2024 09:16:12 OBGyn Episode No OBEpisode recorded.
--- OUTSIDE RECORDS SUMMARY | 2024-11-02 10:32 | XMS_ITS | Clinical Summary ---
Author Organization [facility] Address [address] [place] [address] Care Team Providers Care Lead Android Developer Name Role Phone Liza Santiago MD Primary Care Provider [phone] Social History Tobacco Use Types Packs/Day Years Used Date Smoking Tobacco: Never Assessed Comments Unknown Sex and Gender Information Value Date Recorded Sex Assigned at Not on file Legal Sex Female 7:32 PM CDT Gender Identity Not on file Sexual Orientation Not on file Plan of Treatment Health Maintenance Due Date Last Done Comments Cervical Cancer Screening Pa p Smear (Age 30 to 64) Every 3 Years 1979 Colorectal Cancer Screening Colonoscopy (10 Years) 1979 Annual Physical 1982 Hepatitis C 1997 DTaP, Tdap and Td Vaccines ( 1 - Tdap) 1998 Hepatitis B Vaccines (1 of 3 - 19+ 3-dose series) 1998 Cervical Cancer Screening Pa p with HPV Testing (Age 30 to 64) Every 5 Years 2009 Cervical Cancer Screening with HPV 2009 Mammogram Screening 2019 COVID-19 Vaccine (2023-2 5 season) 2024 HPV Vaccines Aged Out No longer eligi ble based on patient's age to complete this topic Meningococcal B Vaccine Aged Out No l onger eligible based on patient's age to complete this topic Meningococcal Vaccine Aged Out No bijal karol eligible based on patient's age to complete this topic Pneumococcal Vaccine: Pediat rics (0 to 5 Years) and At-Risk Patients (6 to 49 Years) Aged Out No longer eligible b ased on patient's age to complete this topic RSV Immunizations Under 20 Months Aged Out No longer eligible based on patient's age to complete this topic Care Teams Lead Android Developer Relationship Specialty Start Date End Date Liza Santiago MD [address] [address] PCP - General 08/08/14
--- OUTSIDE RECORDS SUMMARY | 2024-11-02 10:32 | XMS_ITS | Clinical Summary ---
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 Gender Identity Not on file Sexual Orientation Not on file Plan of Treatment Health Maintenance Due Date Last Done Comments Hepatitis C Virus (HCV) Screening 1979 TdaP Immunization 1979 Hepatitis B Immunization (1 of 3 - 19+ 3-dose series) 1998 Pap Smear 2000 Cervical Cancer Screening (CCS) 2009 HPV/Cotest 2009 Discussion re Starting/Frequ ency of Mammograms 2019 Influenza Immunization (#1) 2024 SARS-COV-2 Immunization ( season) 2024 Colonoscopy 2024 Colorectal Cancer Screening 2024 Respiratory Syncytial Virus (RSV) Immunization (Adult) (1 - 1-dose 75+ series) 2054 Meningococcal Immunization (ACWY) Aged Out No longer eligible based on patient's age to complete this topic Pneumococcal Immunization Combined Aged Out No longer eligible based on patient's age to complete this topic Rotavirus Immunization Aged Out No lo nger eligible based on patient's age to complete this topic
--- OUTSIDE RECORDS SUMMARY | 2024-11-02 10:32 | XMS_ITS | Clinical Summary ---
Author Organization [facility] [address] [place] [id number] Care Team Providers Care Director Sales Support Name Role Phone Alexis Epstein NP Primary Care Provider [phone] Kandi Yusuf MD Unavailable [phone] Allergies No known active allergies Medications multivit iibsxgzu-jhyi-J A-calcium (THERA-M) 9 mg iron-400 mcg tabletIndicatio ns:Vitamin Deficiency Prevention Take 1 tablet by mouth 2 (two) times a day 60 tablet 1 3 Active lisinopriL (PRINIVIL,ZESTR IL) 40 mg tablet 3 Active hydroCHLOROthia zide (HYDRODIURIL) 25 mg tablet Take 1 tablet (25 mg total) by mouth every morning 3 Active ferrous sulfate 325 mg (65 mg of elemental iron) tablet TAKE 1 TABLET BY MOUTH EVERY DAY WITH BREAKFAST 90 tablet 3 5 Active Active Problems Problem Noted Date Diagnosed Date Status post bariatric surgery 01/04/2023 No diagnosis on [place] I 09/23/2021 Primary hypertension 09/23/2021 Resolved Problems Problem Noted Date Diagnosed Date Resolved Date Morbid (severe) obesity due to excess calories 10/06/2022 01/04/2023 Morbid obesity 09/23/2021 01/04/2023 BMI 45.0-49.9, adult 05/25/2021 023 Immunizations Immunization Administration Dates Next Due Influenza, Unspecified 04/16/2022 Surgical History Surgery Date Site/Laterality Comments CYST REMOVAL coccyx BREAST BIOPSY 10/05/2023 Right Medical History Medical History Date Comments Morbid obesity (HCC) Anemia Depression Hypertension Delayed emergence from general anesthesia Family History Medical History Relation Name Comments Anesthesia problems Mother delayed emergence Asthma Mother Hypertension Mother Obesity Mother Relation Name Status Comments Mother Social History Tobacco Use Types Packs/Day Years Used Date Smoking Tobacco: Never Smokeless Tobacco: Never Tobacco Cessation:Counseling Given: Not Answered AUDIT-C Answer Date Recorded Q1: How often do you have a drink containing alc ohol? Monthly or less 10/06/2022 Average Number of Drinks Not on file 023 Frequency of Binge Drinking Not on file 09/16 Personal Safety Answer Date Recorded Have you ever been in or are you currently in a harmful physical or emotional relationship or is someone making you feel afraid or unsafe? 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 Gender Identity Female 05/07/2021 1:52 PM CDT Sexual Orientation Not on file Obstetrics History Last Filed Vital Signs Vital Sign Reading Time Taken Comments Blood Pressure 145/98 05/16/2023 3:45 PM CDT Pulse 70 05/16/2023 3:45 PM CDT Temperature 36.9 C (98.5 F) 10/13/2022 9:04 AM CDT Respiratory Rate 16 10/08/2022 4:47 PM CDT Oxygen Saturation 100% 05/16/2023 3:45 PM CDT Inhaled Oxygen Concentration - - Weight 117.4 kg (258 lb 13.1 oz) 2023 10:29 AM CDT Height 172.7 cm (5' 8 ) 10/05/2023 10:2 9 AM CDT Body Mass Index 39.35 10/05/2023 10:29 AM CDT Plan of Treatment Health Maintenance Due Date Last Done Comments Breast Cancer Screening-Mammogram 1979 Cervical Cancer Screening 1979 Colon Cancer Screening-Colonoscopy 1979 Depression Screening 1979 Hepatitis C Screening 1979 Hepatitis B Screening 1997 Regular Well Visit/Exam 18-64 1997 Pneumococcal vaccine <65 (1 of 2 - PCV) 1998 DTaP/Tdap/Td Vaccine (2 - Td or Tdap) 07/18/2019 07/18/2009 Influenza Vaccine (Season Ended) 2025 04/16/2022, 05/06/2017 HPV Vaccines Aged Out No longer eligi ble based on patient's age to complete this topic Medical Devices Implanted Type Area Video Producer Device Identifier Shelf Expiration Date Model / Serial / Lot [employer] Biological Bariatric Peristrip Non Crosslinked Bovine Pericardium For Endo Benita Thin [id number] - Sn/A - [id number] Implanted:Qty: 1 on 10/06/2022 by Itz Tai MD at [facility] Other - see comments N/A: Stomach [employer] 06/02/2023 [id number] ATHN / N/A / [id number]- [id number] Description:Staple Reinforce ment [employer] Biological Bariatric Peristrip Non Crosslinked Bovine Pericardium For Endo Benita Thin [id number] - Sn/A - [id number] Implanted:Qty: 1 on 10/06/2022 by Itz Tai MD at [facility] N/A: Stomach [employer] 06/02/2023 [id number] ATHN / N/A / [id number]- [id number] Description:Staple Reinforce ment [employer] Eviva 13cm Identifier Biopsy Site [id number] - [id number] Implanted:Qty: 1 on 10/05/2023 by Amy Zavala MD at [facility] Breast [employer] [id number] 06/06/2024 [facility] / / [id number] Insurance [facility] Advance Directives For more information, please contact: [phone] * Full Code (Latest Code Status on File) Date Activated Date Inactivated Comments 10/06/2022 1:00 PM 10/08/2022 9:26 PM Care Teams Director Sales Support Relationship Specialty Start Date End Date Alexis Epstein NP PCP - General Internal Medicine 04/22/21 Knadi Yusuf MD [address] [place] [address] Referring Physician Gynecology 09/01/23
--- OUTSIDE RECORDS SUMMARY | 2024-11-02 10:32 | XMS_ITS | Referral Summary ---
Author Organization [facility] [address] [place] [id number] Care Team Providers Care Chief Radiologic Technologist Name Role Phone Alexis Epstein NP Primary Care Provider [phone] Kandi Yusuf MD Unavailable [phone] Allergies No known active allergies Medications multivit ahaqamdy-umfk-R A-calcium (THERA-M) 9 mg iron-400 mcg tabletIndicatio [...] post bariatric surgery 01/04/2023 No diagnosis on [place] I 09/23/2021 Primary hypertension 09/23/2021 Resolved Problems Problem Noted Date Diagnosed Date Resolved Date Morbid (severe) obesity due to excess calories 10/06/2022 01/04/2023 Morbid obesity 09/23/2021 01/04/2023 BMI 45.0-49.9, adult 05/25/2021 023 Immunizations Immunization Administration Dates Next Due Influenza, Unspecified 04/16/2022 Social History Tobacco Use Types Packs/Day Years [...] on file 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 Gender Identity Female 05/07/2021 1:52 PM CDT Sexual Orientation Not on file Last Filed Vital Signs Vital Sign Reading [...] 10/05/2023 10:29 AM CDT Plan of Treatment Not on file Medical Devices Implanted Type Area Auricular Detoxification Specialist Device Identifier Shelf Expiration Date Model / Serial / Lot [employer] Biological Bariatric Peristrip Non Crosslinked Bovine Pericardium For Endo Benita Thin [id number] - Sn/A - [id number] Implanted:Qty: 1 on 10/06/2022 by Itz Tai MD at [facility] Other - see comments N/A: Stomach [employer] 06/02/2023 [id number] ATHN / N/A / [id number]- [id number] Description:Staple Reinforce ment [employer] Biological Bariatric Peristrip Non Crosslinked Bovine Pericardium For Endo Benita Thin [id number] - Sn/A - [id number] Implanted:Qty: 1 on 10/06/2022 by Itz Tai MD at [facility] N/A: Stomach [employer] 06/02/2023 [id number] ATHN / N/A / [id number]- [id number] Description:Staple Reinforce ment [employer] Eviva 13cm Identifier Biopsy Site [id number] - [id number] Implanted:Qty: 1 on 10/05/2023 by Amy Zavala MD at [facility] Breast [employer] [id number] 06/06/2024 [facility]-13 / / [id number] Insurance [facility] [employer] Advance Directives For more information, please contact: [phone] * Full Code (Latest Code Status on File) Date Activated Date Inactivated Comments 10/06/2022 1:00 PM 10/08/2022 9:26 PM Care Teams Chief Radiologic Technologist Relationship Specialty Start Date End Date Alexis Epstein NP PCP - General Internal Medicine 04/22/21 Kandi Yusuf MD [address] [place] [address] [address] [address] Referring Physician Gynecology 09/01/23
--- OUTSIDE RECORDS SUMMARY | 2024-11-02 10:32 | XMS_ITS | Clinical Summary ---
Author Organization [facility] Address [address] [place] [address] Care Team Providers Care Negative Developer Name Role Phone Ava Patterson MD Primary Care Provider [phone] Source Comments [facility],non-owned Affiliates and Associated Physician Practices is amultiple site organization consisting of ambulatory clinics and hospital sitesin [place], [place], [place] and [place]. This disclosure is being madepursuant to the Care Everywhere program and may not contain all information available regarding this patient. Last updated 18.[facility] Allergies No known active allergies Medications * Be aware that medications may not be up to date on this document. Alwaysverify current medications with the patient. Rrepemvu-Ryb-Vj -FA ( VITAMINS PO) Take 1 tablet by mouth once daily Active aspirin (ASPIRIN) 81 MG tablet Take 81 mg by mouth once daily Active NIFEdipine CR osmotic 24hr (NIFEDICAL XL) 60 MG tablet Take 1 tablet by mouth once daily 10/27/2017 Active NIFEdipine CR 24hr (ADALAT CC) 30 MG tablet Take 1 tablet by mouth at bedtime Take on an empty stomach. 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 10/27/2017 Obesity 10/27/2017 Comments Yes Social History Tobacco Use Types Packs/Day Years Used Date Smoking Tobacco: Never Smokeless Tobacco: Never Alcohol Use Standard Drinks/Week Comments No 0 (1 standard drink = 0.6 oz pur e alcohol) Comments Yes Sex and Gender Information Value Date Recorded Sex Assigned at Not on file Legal Sex Female 5:59 PM CDT Gender Identity Not on file Sexual Orientation Not on file Last Filed Vital Signs Vital Sign Reading Time Taken Comments Blood Pressure 128/83 02/16/2018 8:34 AM CDT Pulse 105 02/16/2018 8:34 AM CDT Temperature 36.6 C (97.9 F) 02/16/2018 8:34 AM CDT Respiratory Rate 18 11/17/2017 9:04 AM CDT Oxygen Saturation 95% 02/16/2018 8:34 AM CDT Inhaled Oxygen Concentration - - Weight 152.9 kg (337 lb) 02/16/2018 8:34 AM CDT Height 172.7 cm (5' 8 ) 02/16/2018 8:34 AM CDT Body Mass Index 51.24 02/16/2018 8:34 AM CDT Plan of Treatment Health Maintenance Due Date Last Done Comments COLOGUARD (AGES 45-75) - COL ON CA SCREENING 1979 COLON MONITORING 1979 COLONOSCOPY - COLON CA SCREENING 1979 CT COLONOGRAPHY - COLON CA SCREENING 1979 Colorectal Cancer Screening 1979 FIT - COLON CA SCREENING 1979 FLEX SIG - COLON CA SCREENING 1979 LIPID TESTING 1979 MAMMOGRAM 1979 PAP SMEAR 1979 HIV SCREENING 1994 HEPATITIS C SCREENING 06/17/1997 DTAP/TDAP/TD VACCINES (1 - Tdap) 1998 HEPATITIS B VACCINE (1 of 3 - 19+ 3-dose series) 1998 COVID-19 VACCINE ( - 2023-2 5 season) 2024 DEPRESSION SCREENING 07/18/2024 INFLUENZA VACCINE (Season Ended) 2025 ZOSTER VACCINE (1 of 2) 2029 Respiratory Syncytial Virus (RSV) Vaccine Pt: or over 60 yrs (1 - 1-dose 75+ series) 2054 HIB VACCINE Aged Out No longer eligi ble based on patient's age to complete this topic HPV VACCINE Aged Out No longer eligi ble based on patient's age to complete this topic MENINGOCOCCAL (Group B) VACC INE SHARED DECISION-MAKING Aged Out No longer eligibl e based on patient's age to complete this topic MENINGOCOCCAL GROUPS A/C/Y/W VACCINE Aged Out No longer eligible b ased on patient's age to complete this topic PNEUMOCOCCAL VACCINE Aged Out No long er eligible based on patient's age to complete this topic Insurance [facility] Care Teams Negative Developer Relationship Specialty Start Date End Date Ava Patterson MD [address] [place] [address] [place] [id number] [facility] - General 01/19/18
--- OUTSIDE RECORDS SUMMARY | 2024-11-02 10:33 | XMS_ITS | Data Portability ---
Author Organization [facility] IZAIAHBraulio Address [address] [facility] [place] [address] Assessment No assessment recorded. Plan of Treatment Reminders Order Date Submit Date Provider Last Modified By Organization Details Last Modified Time Details Appointments None recorded. Lab HbA1c (hemoglobi n A1c), blood 2016 017 PIA [facility] [address], [place], [address], 7 06:06:54 BMP, serum or plasma 2016 017 [facility]IA [facility], [address], [place], [address], 7 06:06:53 glucose, fingerstic k, blood 2016 017 PIA In-Office Order, Internal Use Only DO Not Attach Compendium DO Not Attach Compendium, Do Not Delete/merge, [id number] 7 10:48:41 CBC w/ auto diff 2015 016 DBA_PATCH_ [id number] [facility], [address], [place], [address], 6 04:33:26 TSH, ultra-sens itive, serum 2015 016 DBA_PATCH_ [id number] [facility], [facility] [address], [address], [place], [address], 6 04:33:21 CMP, serum or plasma 2015 016 DBA_PATCH_ [id number] [facility], [address] [facility] [address], [address], [place], [address], 6 04:33:19 cholestero l, total, serum 2015 016 DBA_PATCH_ [id number] [facility], [address] [facility] [address], [place], [address], 6 04:33:30 HDL cholestero l, serum 2015 016 DBA_PATCH_ [id number] [facility], [address] [facility] [address], [place], [address], 6 04:33:25 Referral None recorded. Procedures None recorded. Surgeries None recorded. Imaging None recorded. Medication Orders phentermin e 37.5 mg tablet 2016 017 [id number] [address] [place], [address], 8 11:15:29 ketoconazo le 2 % topical cream 2016 017 [facility]/Pharmacy #2510, [address] [place], [address], 7 11:46:59 spironolac tone 25 mg-hydroch lorothiazi de 25 mg tablet [address] [facility]/Pharmacy #2510, [address] [place], [address], 8 10:57:26 spironolac tone 25 mg-hydroch lorothiazi de 25 mg tablet [address] [facility]/Pharmacy #2510, [address] [place], [address], 8 10:57:26 Patient TargetsNo targets recorded. Patient Instructions Encounter Date Encounter Id Patient Instructions Last Modified By Organization Details Last Modified Time 06/30/2016 [id number] high blood pressure: care instructions [id number] Not available 07/03/2016 04:33:33 01/17/2017 [id number] When You Want to Lose Weight: Care Instructions Not available 01/17/2017 10:46:08 learning about high blood pressure Not available 01/17/2017 10:46:08 Reason for Referral None Reported. Results Created Date Observation Date Name Description Value Unit Range Abnormal Flag Note LastModifiedBy Organization Detail LastModifiedTime 01/18/20 17 01/17/2017 gluco earnestine van, blood Blood Glucose: mg/dl 86 Not Available In-Off ice Order Internal Use Only DO Not Attach Compendium DO Not Attach Compendium, Do Not Delete/merge, [id number] 01/17/2017 10:44:49 06/30/20 16 07/02/2016 CBC w/ auto diff WBC 7.3 x10e3 /uL 3.4-10 .8 Not Available [facility] ([facility]) [address] [place], [address], 07/02/2016 06:07:32 06/30/20 16 07/02/2016 CBC w/ auto diff RBC 4.16 x10e6 /uL 3.77-5 .28 Not Available [facility] ([facility]) [address] [place], [address], 07/02/2016 06:07:32 06/30/20 16 07/02/2016 CBC w/ auto diff hemoglobin 12.7 g/dL 11.1-1 5.9 Not Available [facility] ([facility]) [address] [place], [address], 07/02/2016 06:07:32 06/30/20 16 07/02/2016 CBC w/ auto diff hematocrit 39.2 % 34.0-4 6.6 Not Available [facility] ([facility]) [address] [facility], [place], [address], 07/02/2016 06:07:32 06/30/20 16 07/02/2016 CBC w/ auto diff MCV 94 fL 79-97 Not Available [facility] ([facility]) [address] [facility], [place], [address], 07/02/2016 06:07:32 06/30/20 16 07/02/2016 CBC w/ auto diff MCH 30.5 pg 26.6-3 3.0 Not Available [facility] ([facility]) [address] [facility], [place], [address], 07/02/2016 06:07:32 06/30/20 16 07/02/2016 CBC w/ auto diff MCHC 32.4 g/dL 31.5-3 5.7 Not Available [facility] ([facility]) [address] [facility], [place], [address], 07/02/2016 06:07:32 06/30/20 16 07/02/2016 CBC w/ auto diff RDW 12.8 % 12.3-1 5.4 Not Available [facility] ([facility]) [address] [facility], [place], [address], 07/02/2016 06:07:32 06/30/20 16 07/02/2016 CBC w/ auto diff platelets 277 x10e3 /uL 150-37 9 Not Available [facility] ([facility]) [address] [facility], [place], [address], 07/02/2016 06:07:32 06/30/20 16 07/02/2016 CBC w/ auto diff neutrophils 57 % Not Available [facility] ([facility]) [address] [facility], [place], [address], 07/02/2016 06:07:32 06/30/20 16 07/02/2016 CBC w/ auto diff lymphs 34 % Not Available [facility] ([facility]) [address] [place], [address], 07/02/2016 06:07:32 06/30/20 16 07/02/2016 CBC w/ auto diff monocytes 7 % Not Available [facility] ([facility]) [address] [place], [address], 07/02/2016 06:07:32 06/30/20 16 07/02/2016 CBC w/ auto diff eos 2 % Not Available [facility] ([facility]) [address] [place], [address], 07/02/2016 06:07:32 06/30/2007/02/2016 CBC w/ auto diff basos 0 % Not Available [facility] ([facility]) [address] [place], [address], 07/02/2016 06:07:32 06/30/20 16 07/02/2016 CBC w/ auto diff immature cells BU[employer]ING WHE[employer] Not Available [facility] ([facility]) [address] [place], [address], 07/02/2016 06:07:32 06/30/20 16 07/02/2016 CBC w/ auto diff neutrophils (absolute) 4.2 x10e3 /uL 1.4-7. 0 Not Available [facility] ([facility]) [address] [place], [address], 07/02/2016 06:07:32 06/30/2007/02/2016 CBC w/ auto diff lymphs (absolute) 2.5 x10e3 /uL 0.7-3. 1 Not Available [facility] ([facility]) [address] [place], [address], 07/02/2016 06:07:32 06/30/20 16 07/02/2016 CBC w/ auto diff monocytes(ab solute) 0.5 x10e3 /uL 0.1-0. 9 Not Available [facility] ([facility]) [address] [facility], [place], [address], 07/02/2016 06:07:32 06/30/20 16 07/02/2016 CBC w/ auto diff eos (absolute) 0.1 x10e3 /uL 0.0-0. 4 Not Available [facility] ([facility]) [address] [facility], [place], [address], 07/02/2016 06:07:32 06/30/20 16 07/02/2016 CBC w/ auto diff baso (absolute) 0.0 x10e3 /uL 0.0-0. 2 Not Available [facility] ([facility]) [address] [facility], [place], [address], 07/02/2016 06:07:32 06/30/20 16 07/02/2016 CBC w/ auto diff immature granulocytes 0 % Not Available [facility] ([facility]) [address] [facility], [place], [address], 07/02/2016 06:07:32 06/30/20 16 07/02/2016 CBC w/ auto diff immature grans (abs) 0.0 x10e3 /uL 0.0-0. 1 Not Available [facility] ([facility]) [address] [facility], [place], [address], 07/02/2016 06:07:32 06/30/20 16 07/02/2016 CBC w/ auto diff NRBC BU[employer] Not Available [facility] ([facility]) [address] [facility], [place], [address], 07/02/2016 06:07:32 06/30/2007/02/2016 CBC w/ auto diff hematology comments: [employer] Not Available [facility] ([facility]) [address] [facility], [place], [address], 07/02/2016 06:07:32 06/30/20 16 07/02/2016 CMP, serum or plasm a glucose, serum 102 mg/dL 65-99 above high normal Not Available [facility] ([facility]) [address] [facility], [place], [address], 07/02/2016 06:07:32 06/30/20 16 07/02/2016 CMP, serum or plasm a BUN 10 mg/dL 6-20 Not Available [facility] ([facility]) [address] [place] [place], [address], 07/02/2016 06:07:32 06/30/20 16 07/02/2016 CMP, serum or plasm a creatinine, serum 0.86 mg/dL 0.57-1 .00 Not Available [facility] ([facility]) [address] [place] [place], [address], 07/02/2016 06:07:32 06/30/20 16 07/02/2016 CMP, serum or plasm a eGFR if nonafricn AM 87 mL/mi n/1.7 3 >59 Not Available [facility] ([facility]) [address] [facility], [place], [address], 07/02/2016 06:07:32 06/30/20 16 07/02/2016 CMP, serum or plasm a eGFR if africn AM 100 mL/mi n/1.7 3 >59 Not Available [facility] ([facility]) [address] [facility], [place], [address], 07/02/2016 06:07:32 06/30/20 16 07/02/2016 CMP, serum or plasm a BUN/creatini ne ratio 12 8-20 Not Available [facility] ([facility]) [address] [facility] [place], [address], 07/02/2016 06:07:32 06/30/20 16 07/02/2016 CMP, serum or plasm a sodium, serum 141 mmol/ L 134-14 4 PLE ASE NOTE REFER ENCE INTER TONY CAGE E Not Available [facility] ([facility]) [address] [place] [place], [address], 07/02/2016 06:07:32 06/30/20 16 07/02/2016 CMP, serum or plasm a potassium, serum 4.2 mmol/ L 3.5-5. 2 Not Available [facility] ([facility]) [address] [place] [place], [address], 07/02/2016 06:07:32 06/30/2007/02/2016 CMP, serum or plasm a chloride, serum 102 mmol/ L 96-106 PLE ASE NOTE REFER ENCE INTER TONY CAGE E Not Available [facility] ([facility]) [address] [place] [place], [address], 07/02/2016 06:07:32 06/30/2007/02/2016 CMP, serum or plasm a carbon dioxide, total 24 mmol/ L 18-29 Not Available [facility] ([facility]) [address] [place] [place], [address], 07/02/2016 06:07:32 06/30/20 16 07/02/2016 CMP, serum or plasm a calcium, serum 9.2 mg/dL 8.7-10 .2 Not Available [facility] ([facility]) [address] [place] [place], [address], 07/02/2016 06:07:32 06/30/20 16 07/02/2016 CMP, serum or plasm a protein, total, serum 7.2 g/dL 6.0-8. 5 Not Available [facility] ([facility]) [address] [place] [place], [address], 07/02/2016 06:07:32 06/30/2007/02/2016 CMP, serum or plasm a albumin, serum 3.8 g/dL 3.5-5. 5 Not Available [facility] ([facility]) [address] [place] [place], [address], 07/02/2016 06:07:32 06/30/20 16 07/02/2016 CMP, serum or plasm a globulin, total 3.4 g/dL 1.5-4. 5 Not Available [facility] ([facility]) [address] [place], [address], 07/02/2016 06:07:32 06/30/20 16 07/02/2016 CMP, serum or plasm a A/G ratio 1.1 1.1-2. 5 Not Available [facility] ([facility]) [address] [place], [address], 07/02/2016 06:07:32 06/30/20 16 07/02/2016 CMP, serum or plasm a bilirubin, total 0.2 mg/dL 0.0-1. 2 Not Available [facility] ([facility]) [address] [place], [address], 07/02/2016 06:07:32 06/30/2007/02/2016 CMP, serum or plasm a alkaline phosphatase, S 59 IU/L 39-117 Not Available [facility] ([facility]) [address] [place], [address], 07/02/2016 06:07:32 06/30/20 16 07/02/2016 CMP, serum or plasm a AST (SGOT) 17 IU/L 0-40 Not Available [facility] ([facility]) [address] [place], [address], 07/02/2016 06:07:32 06/30/2007/02/2016 CMP, serum or plasm a ALT (SGPT) 23 IU/L 0-32 Not Available [facility] ([facility]) [address] [place], [address], 07/02/2016 06:07:32 06/30/20 16 07/02/2016 HDL mary stero l, serum HDL cholesterol 76 mg/dL >39 Not Available [facility] ([facility]) [address] [place], [address], 07/02/2016 06:07:32 06/30/20 16 07/02/2016 TSH, ultra -sens itive , serum TSH 2.360 uIU/m L 0.450- 4.500 Not Available [facility] ([facility]) [address] [place], [address], 07/02/2016 06:07:33 06/30/20 16 07/02/2016 mary stero l, total , serum cholesterol, total 183 mg/dL 100-19 9 Not Available [facility] ([facility]) [address] [place], [address], 07/02/2016 06:07:33 05/18/20 17 05/19/2017 BMP, serum or plasm a glucose, serum 92 mg/dL 65-99 Not Available [facility] ([facility]) [address] [place], [address], 05/19/2017 06:06:53 05/18/20 17 05/19/2017 BMP, serum or plasm a BUN 10 mg/dL 6-20 Not Available [facility] ([facility]) [address] [place], [address], 05/19/2017 06:06:53 05/18/20 17 05/19/2017 BMP, serum or plasm a creatinine, serum 0.76 mg/dL 0.57-1 .00 Not Available [facility] ([facility]) [address] [place], [address], 05/19/2017 06:06:53 05/18/20 17 05/19/2017 BMP, serum or plasm a eGFR if nonafricn AM 101 mL/mi n/1.7 3 >59 Not Available [facility] ([facility]) [address] [place] [address], [address], 05/19/2017 06:06:53 05/18/20 17 05/19/2017 BMP, serum or plasm a eGFR if africn AM 116 mL/mi n/1.7 3 >59 Not Available [facility] ([facility]) [address] [place] [place], [address], 05/19/2017 06:06:53 05/18/20 17 05/19/2017 BMP, serum or plasm a BUN/creatini ne ratio 13 9-23 Not Available [facility] ([facility]) [address] [place] [place], [address], 05/19/2017 06:06:53 05/18/2005/19/2017 BMP, serum or plasm a sodium, serum 143 mmol/ L 134-14 4 Not Available [facility] ([facility]) [address] [facility] [place], [address], 05/19/2017 06:06:53 05/18/2005/19/2017 BMP, serum or plasm a potassium, serum 4.2 mmol/ L 3.5-5. 2 Not Available [facility] ([facility]) [address] [facility], [place], [address], 05/19/2017 06:06:53 05/18/2005/19/2017 BMP, serum or plasm a chloride, serum 102 mmol/ L 96-106 Not Available [facility] ([facility]) [address] [facility] [place], [address], 05/19/2017 06:06:53 05/18/2005/19/2017 BMP, serum or plasm a carbon dioxide, total 25 mmol/ L 18-29 Not Available [facility] ([facility]) [address] [place] [place], [address], 05/19/2017 06:06:53 05/18/2005/19/2017 BMP, serum or plasm a calcium, serum 9.0 mg/dL 8.7-10 .2 Not Available [facility] ([facility]) [address] [place], [address], 05/19/2017 06:06:53 11/01/20 17 05/19/2017 HbA1c (hemo globi n A1c), blood hemoglobin A1C 5.5 % 4.8-5. 6 Pre-d iabet es: 5.7 - 6.4 Diabe sera: >6.4 Glyce honorio contr ol for adult s with diabe sera: <7.0 Not Available [facility] ([facility]) [address] [facility], [place], [address], 05/19/2017 06:06:53 Result Notes None recorded. Problems Name Problem SNOMED Code Status Onset Date Resolution Date Notes Provider Name and Address Organization Details Recorded Time Benign essential hypertension 6578086 Active 2016 Liza Santiago MD Attn: Erasto mariana,[address] [facility], [place], [address], [facility] 7 10:45:55 Polyuria 61452118 Active 2016 Lzia Santiago MD Attn: Erasto peña,[address] [place], [address], [facility] 7 10:45:56 Bilateral knee pain Active 2016 Liza Santiago MD Attn: Erasto mariana,[address] [facility], [place], [address], [facility] 7 10:45:58 Morbid obesity 934853121 Active 2016 Liza Santiago MD Attn: Erasto peña,[address] [facility], [place], [address], [facility] 7 10:46:00 Problem Notes None recorded. Medical Equipment None Reported. Allergies No known drug allergies Medications Name Sig Start Date Stop Date Status Note LastModified by Organization Details LastModified Time spironolac tone 25 mg-hydroch lorothiazi de 25 mg tablet TAKE 1 TABLET BY MOUTH EVERY DAY 08/16 completed Not Available Not Available Not Available phentermin e 37.5 mg tablet Take 1 tablet every day by oral route. 08/16 completed never took Not Available Not Available Not Available nystatin-t riamcinolo ne 100,000 unit/g-0.1 % topical cream Apply to affected area as directed active Not Available Not Available No t Available labetalol 100 mg tablet Take 1 tablet twice a day by oral route. active Not Available Not Available No t Available ketoconazo le 2 % topical cream APPLY A SMALL AMOUNT TO THE AFFECTED AREA(S) BY TOPICAL ROUTETWIC E A DAY FOR 14 DAYS , THEN ONCE DAILY 2016 active Not Available Not Available Not Avai lable NuvaRing 0.12 mg-0.015 mg/24 hr vaginal 05/18 completed Not Available Not Available Not Available Vitals Date Recorded Body height Body mass index (BMI) Body weight Oxygen saturation Oxygen saturation in Arterial blood by Pulse oximetry Heart rate Body temperature Systolic blood pressure Diastolic blood pressure Provider Name and Address Organization Details Last Updated DateTime 8 172.72 cm 49.7 kg/m2 143718. 7 g 99 % 99 % 93 /min 97.6 [degF] 122 mm[Hg] 74 mm[Hg] Shaye Recinos MA [facility] 8 11:03:03 Date Recorded Systolic blood pressure Diastolic blood pressure Provider Name and Address Organization Details Last Updated DateTime 08/16/2017 118 mm[Hg] 76 mm[Hg] Liza Santiago MD Attn: Accounting,[address] [place], [address], [facility] 08/16/2017 11:15:14 Date Recorded Body height Body weight Body mass index (BMI) Heart rate Systolic blood pressure Diastolic blood pressure Provider Name and Address Organization Details Last Updated DateTime 6 172.72 cm 984185. 36 g 46.2 kg/m2 80 /min 132 mm[Hg] 98 mm[Hg] Arelis Carey [facility] 6 14:46:31 Date Recorded Body height Body weight Body mass index (BMI) Heart rate Oxygen saturation Oxygen saturation in Arterial blood by Pulse oximetry Provider Name and Address Organization Details Last Updated DateTime 7 172.72 cm 440897. 63 g 47.1 kg/m2 102 /min 99 % 99 % Dotty Dias MA [facility] 7 11:33:23 Date Recorded Systolic blood pressure Diastolic blood pressure Provider Name and Address Organization Details Last Updated DateTime 09/22/2016 142 mm[Hg] 106 mm[Hg] BRANDI Kerr Attn: Accounting,[address] [place], [address], [facility] 09/22/2016 11:41:02 Date Recorded Body height Body mass index (BMI) Body weight Body temperature Oxygen saturation Oxygen saturation in Arterial blood by Pulse oximetry Heart rate Systolic blood pressure Diastolic blood pressure Provider Name and Address Organization Details Last Updated DateTime 7 172.72 cm 48.8 kg/m2 986920. 15 g 98.6 [degF] 99 % 99 % 97 /min 148 mm[Hg] 90 mm[Hg] Harriet Yang MA [facility] 7 09:57:18 Date Recorded Systolic blood pressure Diastolic blood pressure Provider Name and Address Organization Details Last Updated DateTime 01/17/2017 128 mm[Hg] 84 mm[Hg] Liza Santiago MD Attn: Accounting,[address] [place], [address], [facility] 01/17/2017 10:34:02 Date Recorded Body height Body mass index (BMI) Body weight Body temperature Oxygen saturation Oxygen saturation in Arterial blood by Pulse oximetry Heart rate Systolic blood pressure Diastolic blood pressure Provider Name and Address Organization Details Last Updated DateTime 7 172.72 cm 49.9 kg/m2 971083 g 97.3 [degF] 99 % 99 % 95 /min 116 mm[Hg] 86 mm[Hg] Sue Diane ma [facility] 7 10:51:53 Social History Question Answer Notes LastModified by Organizat ion Details LastModified Time Tobacco Smoking Status Never Smoker Dotty Dias MA [facility], [facility] 09/22/2016 11:30:17 What Was The Date Of Your Most Recent Tobacco Screening? 08/16/2017 Information n ot available 02/08/2019 Sex: Unknown Functional Status None recorded. Mental Status None recorded. Family History Relationship Description Onset Age of this Age Resolved Age Notes LastModified by Organization Details LastModified Time Mother Hypertensive disorder [email or web address] Not available 2016 11:30:06 Unspecified Relation Hypertensive disorder Unspec ified Aunt manolo Not available 01/17/2017 09:43:23 Medical History No medical history recorded. Gynecological History Statement/Question Response Menses Monthly N Obstetrics History GPAL:G 0 P 0 0 0 0 Immunizations Vaccine Type Date Status Note Provider Derrell banuelos and Address Organization Details Recorded Time Tdap 07/18/2009 completed Liza Santiago MD Attn: Accounting,[address] [facility], [place], [address], [facility] 01/17/2017 10:43:22 influenza, unspecified formulation 05/06/2017 completed Sue Gutierrez [facility], [place] [facility] 05/18/2017 10:53:23 Past Encounters Encounter ID Performer Location Encounter Start Date Encounter Closed Date Diagnosis/Indication Diagnosis SNOMED-CT Code Diagnosis ICD10 Code Diagnosis Note [id number] BRANDI Kerr [facility] [address] [place] [address] 06/30/2016 14:40:38 07/02/2016 14:29:38 On examination - initial high BP 622059819 R03.0 [id number] BRANDI Kerr [facility] [address] [place] [address] 09/22/2016 10:57:32 09/22/2016 17:13:27 Essential hypertension 96351216 I10 See HPI, she will work on healthy lifestyle changes, is switching to a less stressful job and stopping her nuvaring, and will f/u after that in 3-6 months to reassess need for antihypert ensive therapy. Obesity 573881568 E66.9 see above, will f/u in 3-6 months [id number] Liza Santiago MD [facility] [address] [place] [address] 01/17/2017 09:47:27 01/17/2017 15:01:44 Benign essential hypertension 9879194 I10 Polyuria 81720388 R35.8 Bilateral knee pain 1187 790615 6190480 M25.561 M25.562 take OTC ALEVE as needed for this pain and lose weight Morbid obesity 029646265 E66.01 [id number] Liza Santiago MD [facility] [address] [facility] [place] [address] 05/18/2017 10:43:01 05/18/2017 14:49:00 Benign essential hypertension 8511918 I10 no med change Morbid obesity 618538137 E66.01 new start Submammary intertrigo 24 5072068 L30.4 trial med for the rash BID for 14 days , then daily for prevention until weight loss Acquired a canthosis nigricans 04709805 L83 [id number] Liza Santiago MD [facility] [address] [place] [address] 08/16/2017 10:00:44 08/16/2017 15:49:35 Morbid obesity 497767704 E66.01 Benign ess ential hypertension 8177617 I10 med change noted per OB adn care with management of BP while will be deferred to her OB. I will see patient as needed and follow up in one year 83631182 Z33.1 Health Concerns Section Related Observation LastModified by Organization Detai ls LastModified Time None Recorded Concern Status LastModified by Organization Details LastModified Time None Recorded Advance Directives Directive None Recorded Payers Encounter Date Sequence Insurance Name Policy Number Policy Chandler Covered Member ID Chandler Member ID Guarantor Name 06/30/2016 1 [place] [facility] [id number] Leia Cardenas [id number] Leia Cardenas 09/22/2016 1 [employer] - CHOICE (POS II) [id number] Leia Cardenas [id number] Leia Cardenas 01/17/2017 1 [employer] - DOS PRIOR TO 21 - [facility] BENEFITS PLAN [id number] Leia Cardenas [id number] Leia Cardenas 05/18/2017 1 [employer] - [place] - DOS PRIOR TO 2024 (PPO) Leia Cardenas [id number] Leia Cardenas 08/16/2017 1 [place] [employer] ([place]O) 111 Leia Cardenas [id number] Leia Cardenas Notes Date Note Type Note Provider Name and Address Organization Details Recorded Time 06/30/2016 text/html Patient here to discuss elevated BP. Went to [place] yesterday and BP was 141/96, Also did EKG there, but does not know results. Was there for new employee screenin . Had not been checking BP before she went to [place]. Came into our office yesterday and had BP checked. No results in chart. Also wants to discuss weight gain, at [facility] on 06/17/14 pt weiged 273. 30 lb weight gain in 2 years. Yearly women exam was in February with Dr. Yusuf, and BP fine then. Just before she got . Very stressed out at job, buying a new house, nephew in and out of [facility]. Stress eats and knows its a problem. BRANDI Kerr Attn: Accounting,[address] [place], [address], [facility] [place]2016 15:19:10 09/22/2016 text/html pt is here f/u o n elevated b/p. Pt was not put on anything just was told to come back in office to check it. HTN does run on the pt mother side of the family. Just got off depo provera and started nuva ring before high BP started. Getting ready st switch jobs and stop nuvaring this month. Will rech BP after those 2 things happen and will f/u in 3 months to reconsider the need for medication. Will also work on healthy lifestyle changes. Really wants to hold off on medication for now. BRANDI Kerr Attn: Accounting[address] [place], [address], [facility] 09/22/2016 11:53:26 01/17/2017 text/html Hypertension F/UReported bypatient.Associated Symptoms:no dizziness; no lightheadedness; no chest pain; no shortness of breath Lifestyle:limiting/a voiding salt;not exercising regularly Medications:checks blood pressure at home, range: (141/97 checked at [facility]) Liza Santiago MD Attn: Accounting[address] [place], [address], [facility] 01/17/2017 10:47:09 05/18/2017 text/html Hypertension F/UReported bypatient.Associated Symptoms:no dizziness; no lightheadedness; no chest pain; no shortness of breath; no palpitations; no edema; no calf pain with exertion Lifestyle:limiting/a voiding salt;not exercising regularly Medications:taking medications as directed; no side effects from medicationRash/Skin LesionReported bypatient.[facility] ([facility]) Quality:stable;itchy Duration:has noted for 2-3 months; 3 months ago Context:no new detergents or skin products; Went to Urgent Care and was prescribed a cream that has not helped. Alleviating Factors:nothing gives relief Associated Symptoms:no fever Liza Santiago MD Attn: Accounting[address] [facility], [place], [address], [facility] 05/18/2017 13:54:09 08/16/2017 text/html Hypertension F/UReported bypatient.Associated Symptoms:no dizziness; no lightheadedness; no chest pain; no shortness of breath; no palpitations; no edema; no calf pain with exertion Lifestyle:regular exercise; limiting/avoiding salt Medications:taking medications as directed; checks blood pressure at home, range:; home bp has been normal She is now in first trimester of and had med changed from Spironolactone / HCTZ to Labetolol by her OB-- Dr. Yusuf. SHe has no side effects that she has noted. I asked about wheezing of slow heart rate and not noted. Liza Santiago MD Attn: Accounting,[address] [facility], [place], [address], [facility] 08/16/2017 11:23:05 OBGyn Episode No OBEpisode recorded.
--- OUTSIDE RECORDS SUMMARY | 2024-11-02 10:33 | XMS_ITS | Clinical Summary ---
Author Organization [facility] Address [address] [place] [address] Phone Care Team Providers Care Fashion Show Director Name Role Phone Unavailable Primary Care Provider Unavailabl e Medications vit-iron fum-folic ac ( S) 27 mg iron- 0.8 mg TabletIndication s:Hypertension in , essential, antepartum, second trimester,Protei holly affecting in second trimester,Obesit y during in second trimester,Superv ision of high risk in second trimester,20 weeks gestation of Take 1 Tablet by mouth daily. Active aspirin (JONATHAN CHEWABLE) 81 mg Tablet, ChewableIndicati ons:Hypertension in , essential, antepartum, second trimester,Protei holly affecting in second trimester,Obesit y during in second trimester,Superv ision of high risk in second trimester,20 weeks gestation of Take 81 mg by mouth daily. Active cholecalciferol (DELTA-D, VITAMIN D3) 400 unit TabletIndication s:Hypertension in , essential, antepartum, second trimester,Protei holly affecting in second trimester,Obesit y during in second trimester,Superv ision of high risk in second trimester,20 weeks gestation of Take 400 Units by mouth every 7 days. Active NIFEdipine (PROCARDIA XL) 30 mg Extended Release 24 hour tabletIndication s:Hypertension in , essential, antepartum, second trimester,Protei holly affecting in second trimester,Obesit y during in second trimester,Superv ision of high risk in second trimester,20 weeks gestation of Take 1 Tablet by mouth daily at bedtime . 6 8 Active NIFEdipine (PROCARDIA XL) 60 mg Extended Release 24 hour tabletIndication s:Hypertension in , essential, antepartum, second trimester,Protei holly affecting in second trimester,Obesit y during in second trimester,Superv ision of high risk in second trimester,20 weeks gestation of Take 60 mg by mouth daily after breakfast . 8 Active Active Problems Problem Noted Date Diagnosed Date Antepartum multigravida of advanced maternal age 0512/13/2017 Hypertension in , e ssential, antepartum, second trimester 11/16/2017 Proteinuria affecting in second trimes ter 11/16/2017 Obesity during in second trimester 08/2017 Social History Tobacco Use Types Packs/Day Years Used Date Smoking Tobacco: Never Smokeless Tobacco: Never Alcohol Use Standard Drinks/Week Comments No 0 (1 standard drink = 0.6 oz pur e alcohol) Comments No Sex and Gender Information Value Date Recorded Sex Assigned at Not on file Legal Sex Female 2:25 PM CDT Gender Identity Not on file Sexual Orientation Not on file Last Filed Vital Signs Vital Sign Reading Time Taken Comments Blood Pressure 130/80 12/20/2017 11:17 AM CDT Pulse - - Temperature - - Respiratory Rate - - Oxygen Saturation - - Inhaled Oxygen Concentration - - Weight 150.6 kg (332 lb) 12/20/2017 11:17 AM CDT Height 172.7 cm (5' 8 ) 11/16/2017 11:03 AM CDT Body Mass Index 50.48 11/16/2017 11:03 AM CDT Plan of Treatment Health Maintenance Due Date Last Done Comments Pre-Diabetes and Diabetes Screening 1979 DTAP/TDAP/TD VACCINES (1 - Tdap) 1998 HEPATITIS B VACCINES (1 of 3 - 19+ 3-dose series) 1998 HPV/Cotest (21-29) 2000 PAP SMEAR 2000 CERVICAL CANCER SCREENING 2009 HPV/Cotest (30-65) 2009 PAP SMEAR 2009 BREAST CANCER SCREENING 2019 INFLUENZA VACCINE (#1) 2024 COLORECTAL SCREENING 2024 Colorectal Cancer Screening 2024 FIT-DNA Q 3 years 2024 FIT/FOBT Q 1 year 2024 Flex Sig/CT Colonography Q 5 years 2024 HPV VACCINES Aged Out No longer eligi ble based on patient's age to complete this topic PNEUMOCOCCAL VACCINE 0-49 YEARS Aged Out No longer eligible based on patient's age to complete this topic Insurance [facility]
--- OUTSIDE RECORDS SUMMARY | 2024-11-02 10:33 | XMS_ITS | Encounter Summary ---
Author Organization [facility] Health Address [address] [facility] [place] [address] Care Team Providers Care Rollway Worker Name Role Phone Kandi Yusfu MD Primary Care Provider [phone] Ava Patterson MD Primary Care Provider [phone] Encounter Details Date Type Department Care Team (Late st Contact Info) Description 05/04/2016 Lab Requisition [facility] [address] [place] [address] Unknown, Provider Social History Tobacco Use Types Packs/Day Years Used Date Smoking Tobacco: Never Assessed Comments Unknown Sex and Gender Information Value Date Recorded Sex Assigned at Not on file Legal Sex Female 5:59 PM CDT Gender Identity Not on file Sexual Orientation Not on file documented as of this encounter Plan of Treatment Not on file documented as of this encounter Procedures Procedure Name Priority Date/Time Associated Diagnosis Comments RUBEOLA ANTIBODY IGG Routine 05/04/2016 10:35 AM CDT MUMPS ANTIBODY IGG Routine 05/04/2016 10 :35 AM CDT VARICELLA ZOSTER ANTIBODY IGG Routine 05/04/2016 10:35 AM CDT RUBELLA ANTIBODY IGG Routine 05/04/2016 10:35 AM CDT HEPATITIS B SURFACE ANTIBODY Routine 05/04/2016 10:35 AM CDT documented in this encounter Results * VARICELLA ZOSTER ANTIBODY IGG (05/04/2016 10:35 AM CDT) Varicella zoster Virus Antibody IgG 1747 Immune >165 index 05/06/2016 1:13 PM CDT [facility] ([facility]) Comment: Negative <135 Equivocal 135 - 165 Positive >165 A positive result generally indicates exposure to the pathogen or administration of specific immunoglobulins, but it is not indication of active infection or stage of disease. Blood BLOOD SPECIMEN / Unknown Venipuncture / Unknown 05/04/2016 10:35 AM CDT 05/04/2016 7:39 PM CDT Narrative [facility] ([facility]) - 05/06/2016 1:13 PM CDT Performed at: [address] [place] [id number] Almond Paste Molder: Damian Salas PhD, Phone: [phone] us Provider Unknown LAB - CHEMISTRY ORDERABLES Angelita l Result Performing Organization Address [facility] Co de Phone Number [facility] ([facility]) [address] [place] [address] * (ABNORMAL) RUBEOLA ANTIBODY IGG (05/04/2016 10:35 AM CDT) Measles (Rubeola) Antibody IgG <25.0(L) Immune >29.9 AU/mL 05/06/2016 1:13 PM CDT [facility] ([facility]) Comment: Negative <25.0 Equivocal 25.0 - 29.9 Positive >29.9 Presence of antibodies to Rubeola is presumptive evidence of immunity except when acute infection is suspected. Blood BLOOD SPECIMEN / Unknown Venipuncture / Unknown 05/04/2016 10:35 AM CDT 05/04/2016 7:39 PM CDT [facility]) - 05/06/2016 1:13 PM CDT Performed at: [address] [place] [address] [id number] Almond Paste Molder: Damian Salas PhD, Phone: [phone] Provider Unknown LAB - CHEMISTRY ORDERABLES Angelita l Result Performing Organization Address [facility] Co de Phone Number [facility] ([facility]) [address] [place] [address] * MUMPS ANTIBODY IGG (05/04/2016 10:35 AM CDT) [facility] Mumps Virus Antibody IgG Index 67.3 Immune >10.9 AU/mL 05/06/2016 1:13 PM CDT [facility] ([facility]) Comment: Negative <9.0 Equivocal 9.0 - 10.9 Positive >10.9 A positive result generally indicates past exposure to Mumps virus or previous vaccination. Blood BLOOD SPECIMEN / Unknown Venipuncture / Unknown 05/04/2016 10:35 AM CDT 05/04/2016 7:39 PM CDT [facility]ative [facility] - 05/06/2016 1:13 PM CDT Performed at: [address] [place] [address] [id number] Almond Paste Molder: Damian Salas PhD, Phone: [phone] Provider Unknown LAB - CHEMISTRY ORDERABLES Angelita l Result Performing Organization Address [facility] Co de Phone Number [facility] [address] [place] [address] * RUBELLA ANTIBODY IGG (05/04/2016 10:35 AM CDT) [facility] Rubella Antibody IgG Positive - Immune 05/04/2016 9:04 PM CDT [facility] Blood BLOOD SPECIMEN / Unknown Venipuncture / Unknown 05/04/2016 10:35 AM CDT 05/04/2016 7:39 PM CDT us Provider Unknown LAB - SEROLOGY ORDERABLES Final Result Performing Organization Address [facility] Co de Phone Number [facility] [address] [place] [address] * (ABNORMAL) HEPATITIS B SURFACE ANTIBODY (05/04/2016 10:35 AM CDT) [facility] HBsAb REACTIVE(A ) Non Reactive 05/04/2016 8:54 PM CDT [facility] Blood BLOOD SPECIMEN / Unknown Venipuncture / Unknown 05/04/2016 10:35 AM CDT 05/04/2016 7:39 PM CDT us Provider Unknown LAB - CHEMISTRY ORDERABLES Angelita l Result [facility] [address] [place] [address] documented in this encounter Visit Diagnoses Not on filedocumented in this encounter Care Teams Rollway Worker Relationship Specialty Start Date End Date Kandi Yusuf MD [facility] [address] [id number] PCP - General 10/27/17 01/18/18 Ava Patterson MD [address] [place] [phone] PCP - General 01/19/18 documented as of this encounter
--- OUTSIDE RECORDS SUMMARY | 2024-11-02 10:33 | XMS_ITS | Encounter Summary ---
Author Organization [facility] Healthcare Address [address] [place] [address] Care Team Providers Care Stock Buyer Name Role Phone Unavailable Primary Care Provider Unavailabl e Reason for Visit * Diagnostic Imaging (Routine) - Closed Specialty Diagnoses / Procedures Referred By Contac t Referred To Contact Procedures Breast Imaging Screening Outside Reference Transcribed Order, Provider Referral ID Status Reason Start Date Expiration Date Visits Re quested Visits Authorized [id number] Closed 09/20/2023 10/19/2024 1 1 Encounter Details Date Type Department Care Team (Late st Contact Info) Description 10/05/[address] [facility] [address] [place] [address] Social History Tobacco Use Types Packs/Day Years Used Date Smoking Tobacco: Never Smokeless Tobacco: Never AUDIT-C Answer Date Recorded Q1: How often [...] on file Legal Sex Female 1:45 AM RADIO OPERATOR Gender Identity Female 05/07/2021 1:52 PM CDT Sexual Orientation Not on file documented as of this encounter Functional Status * Audit-C Score Answer Date of Assessment Author 4 09/23/2022 5:01 PM Yosef Rangel RN * Question Answer Date of Assessment Author Q1: How often do you have a drink containing alcohol? Monthly or less 10/06/2022 7:06 AM CDT Mary Kate Burns RN Q2: How many drinks containing alcohol do you have on a typical day when you are drinking? 3 or 4 09/23/2022 5:01 PM Trini Rangel RN Q3: How often do you have six or more drinks on one occasion? Less than monthly 09/23/2022 5:01 PM Trini Rangel RN documented as of this encounter Plan of Treatment Not on file documented as of this encounter Procedures Procedure Name Priority Date/Time Associated Diagnosis Comments BREAST IMAGING MG SCREENING OUTSIDE REFERENCE Routine 10/05/2019 12:00 AM CDT documented in this encounter Results * Breast Imaging Screening Outside Reference (10/05/2019 12:00 AM CDT) Impressions [facility] - 09/20/2023 11:53 AM RADIO OPERATOR These images are for Reference purposes only and have not been reviewed by [facility] Radiology. There will be no report generated by a [facility] Radiologist. Narrative [facility] - 09/20/2023 11:53 AM RADIO OPERATOR EXAMINATION: Images For Reference Purposes Only us Provider Transcribed Order IMG MAMMO PROCEDURES Final Result [facility] documented in this encounter Visit Diagnoses Not on filedocumented in this encounter
--- OUTSIDE RECORDS SUMMARY | 2024-11-02 10:33 | XMS_ITS | Encounter Summary ---
Author Organization [facility] Healthcare Address [address] [place] [address] Care Team Providers Care Geometry Professor Name Role Phone Unavailable Primary Care Provider Unavailabl e Reason for Visit * Diagnostic Imaging (Routine) - Closed Specialty Diagnoses / Procedures Referred By Contac t Referred To Contact Procedures Breast Imaging Screening Outside Reference Transcribed Order, Provider Referral ID Status Reason Start Date Expiration Date Visits Re quested Visits Authorized [id number] Closed 09/20/2023 10/19/2024 1 1 Encounter Details Date Type Department Care Team (Late st Contact Info) Description 10/10/2020 Hospital Encounter [facility] [address] [place] [address] Social History Tobacco Use Types Packs/Day Years [...] on file Legal Sex Female 1:45 AM MID LEVEL JAVA DEVELOPER Gender Identity Female 05/07/2021 1:52 PM CDT [...] BREAST IMAGING MG SCREENING OUTSIDE REFERENCE Routine 10/10/2020 12:00 AM CDT documented in this encounter Results * Breast Imaging Screening Outside Reference (10/10/2020 12:00 AM CDT) Impressions [facility] - 09/20/2023 11:53 AM MID LEVEL JAVA DEVELOPER These images are for Reference purposes only and have not been reviewed by [facility] Radiology. There will be no report generated by a [facility] Radiologist. Narrative [facility] - 09/20/2023 11:53 AM MID LEVEL JAVA DEVELOPER EXAMINATION: Images For Reference Purposes Only us Provider Transcribed Order IMG MAMMO PROCEDURES Final Result [facility] documented in this encounter Visit Diagnoses Not on filedocumented in this encounter
--- OUTSIDE RECORDS SUMMARY | 2024-11-02 10:33 | XMS_ITS | Encounter Summary ---
Author Organization [facility] Address [address] [place] [address] Phone Care Team Providers Care Analog Ic Design Architect Name Role Phone Alexis Epstein NP Primary Care Provider [phone] Kandi Yusuf MD Unavailable [phone] Encounter Details Date Type Department Care Team (Late st Contact Info) Description 07/24/2021 Documentation [facility] Physical Therapy [address] [place] [phone] Clementine Roth, DPT [address] [facility] [address] [facility] [address] [place] [address] Social History Tobacco Use Types Packs/Day Years Used Date Smoking Tobacco: Never Smokeless Tobacco: Never AUDIT-C Answer Date Recorded Q1: How often do you have a drink containing alc ohol? 2-4 times a month 05/25/2021 Average Number of Drinks Not on file 021 Frequency of Binge Drinking Not on file 02/2021 Comments Unknown Sex and Gender Information Value Date Recorded Sex Assigned at Not on file Legal Sex Female 1:45 AM JOB BOSS Gender Identity Female 05/07/2021 1:52 PM CDT Sexual Orientation Not on file documented as of this encounter Plan of Treatment Not on file documented as of this encounter Visit Diagnoses Not on filedocumented in this encounter Care Teams Analog Ic Design Architect Relationship Specialty Start Date End Date Alexis Epstein, VIANCA PCP - General Internal Medicine 04/22/21 Kandi Yusuf MD [address] [place] [address] [address] Referring Physician Gynecology 09/01/23 documented as of this encounter
== END 2024-11-02 10:23 | disposition home or self-care (01) ==
LOC: ANHIMG 10:26
PROVIDERS: PCP Nurse Practitioner Family; Visit Provider Obstetrics & Gynecology Gynecology
DX: Z12.31 Encounter for screening mammogram for malignant neoplasm of breast (principal)
CPT/HCPCS: 77063; 77067

== ENCOUNTER 2025-05-01 15:52 | Outpatient (CLI) | payer BC, SELFPAY ==
--- NOTE | ~2025-05-01 | US_ITS ---
EXAMINATION: US pelvic complete, 05/01/2025 15:55 CDT HISTORY: abn uterine bleeding Comparison: None Technique: Perez-scale and color Doppler images were obtained. Findings: Uterus: Uterus anteverted 9 x 5.1 x 7 cm. . Endometrium 7 mm, there is no IUD identified. Right Ovary:Right ovary 2 x 2 point 2 x 2 cm, no adnexal mass, normal flow. Left Ovary: Left ovary 1.9 x 2.4 x 2 cm, no adnexal mass, normal flow. Free Fluid: None Impression: 1. No etiology to explain the patient's symptoms. There is no IUD identified Reviewed, dictated and finalized at location P. Impression: 1. No etiology to explain the patient's symptoms. There is no IUD identified
== END 2025-05-01 15:53 | disposition home or self-care (01) ==
DX: N93.8 Other specified abnormal uterine and vaginal bleeding (principal)
CPT/HCPCS: 76856

== ENCOUNTER 2025-06-05 07:06 | Outpatient (CLI) | payer BC, SELFPAY ==
--- NOTE | ~2025-06-05 | XR_ITS ---
EXAMINATION: XR abdomen/kub 1V, 06/05/2025 7:10 RESORT KEEPER HISTORY: Displacement of intrauterine contraceptive device, initial e COMPARISON: No comparisons available. Technique: 3 view. Findings: Moderate fecal content, no dilated bowel loops. No free air. No abnormal calcifications No acute osseous abnormality. An IUD is not identified. Impression: 1. An IUD is not identified. If there remains clinical concern CT is suggested to assess. Reviewed, dictated and finalized at location P. RT KEEPER Impression: 1. An IUD is not identified. If there remains clinical concern CT is suggested to assess.
== END 2025-06-05 07:07 | disposition home or self-care (01) ==
LOC: MICIMG 07:08
PROVIDERS: PCP Obstetrics & Gynecology Gynecology; Visit Provider Obstetrics & Gynecology Gynecology
DX: T83.32XA Displacement of intrauterine contraceptive device, initial encounter (principal)
CPT/HCPCS: 74018